=== PATIENT | female | born 1975 | race Caucasian/White ===

== ENCOUNTER 2019-11-03 14:03 | Outpatient (CLI) | payer BC, SELFPAY ==
--- NOTE | ~2019-11-03 | MM_ITS ---
EXAMINATION: MM screening yudith BI w manjit HISTORY: Screening TECHNIQUE: Craniocaudal and mediolateral oblique 3-D tomosynthesis images were obtained and synthetic 2-D images were generated. CAD analysis was submitted and interpreted. COMPARISON: Comparison to multiple prior studies sequentially, with oldest reviewed study dated 06/12. BREAST PARENCHYMAL COMPOSITION: The breasts are heterogeneously dense, which may obscure small masses . FINDINGS: There is no evidence of suspicious mass, calcification, or architectural distortion to sugg est malignancy in either breast. There has been no suspicious interval change. IMPRESSION: 1. No mammographic evidence of malignancy. 2. Recommend routine screening mammography in one year. BI-RADS Category 1: Negative Reviewed, dictated and finalized at location A.
== END 2019-11-03 14:04 | disposition home or self-care (01) ==
LOC: ANHIMG 14:10
PROVIDERS: PCP Family Medicine; Visit Provider Obstetrics & Gynecology
DX: Z12.31 Encounter for screening mammogram for malignant neoplasm of breast (principal)
CPT/HCPCS: 77063; 77067

== ENCOUNTER 2020-11-05 14:55 | Outpatient (CLI) | payer OTHER, SELFPAY ==
--- NOTE | ~2020-11-05 | MM_ITS ---
EXAMINATION: MM screening yudith BI w manjit HISTORY: Screening TECHNIQUE: Craniocaudal and mediolateral oblique 3-D tomosynthesis images were obtained and synthetic 2-D images were generated. CAD analysis was submitted and interpreted. COMPARISON: Comparison to multiple prior studies sequentially, with oldest reviewed study dated 06/12. BREAST PARENCHYMAL COMPOSITION: There are scattered areas of fibroglandular density. FINDINGS: There is no evidence of suspicious mass, calcification, or architectural distortion to sugg est malignancy in either breast. There has been no suspicious interval change. IMPRESSION: 1. No mammographic evidence of malignancy. 2. Recommend routine screening mammography in one year. BI-RADS Category 1: Negative Reviewed, dictated and finalized at location A.
== END 2020-11-05 14:56 | disposition home or self-care (01) ==
LOC: ANHIMG 14:57
PROVIDERS: PCP Family Medicine; Visit Provider Obstetrics & Gynecology
DX: Z12.31 Encounter for screening mammogram for malignant neoplasm of breast (principal)
CPT/HCPCS: 77063; 77067

== ENCOUNTER 2021-06-14 15:37 | Emergency (ER) | payer OTHER, SELFPAY ==
[2021-06-14 15:43] VITALS: BP 152/92; PULSE 86; RESP 18; TEMP 36.9; O2SAT 100
--- NOTE | 2021-06-14 15:46 | ED.GENADULT ---
HPI - General Adult General Chief complaint: Extremity Problem,Nontraumatic Stated complaint: SWOLLEN TOE Time Seen by Provider: 06/14/21 15:45 Source: patient, RN notes reviewed and old records reviewed Mode of arrival: ambulatory Limitations: no limitations History of Present Illness HPI narrative: 46-year-old female who presents to [facility] with complaints of infection to her right medial toe due to ingrown nail which patient admits to picking at. Right great toe is tender to palpation with inflamed red tissue medial toenail bed, no drainage noted with some white tissue also noted . Patient reports that she has been soaking her foot in Epsom SALT water and has been applying Neosporin ointment to site and covering it with band-aide. Patient reports that she has had previous ingrown nail to that toe in the past. She states no tingling or numbness to right great toe, full mobility of right foot with strong pulses present. Patient denies any fevers, chills or sweats, has not taken anything for her discomfort. Related Data Allergies Allergy/AdvReac Type Severity Reaction Status Date / Time No Known Allergies Allergy Unverified 08/08/17 12:31 Review of Systems Review of Systems: CONSTITUTIONAL: Denies fever, chills, or sweats. EYES: Denies visual changes, redness, or discharge. ENT: Denies rhinorrhea, congestion, sore throat, or otalgia. CARDIOVASCULAR: Denies chest pain, palpitations, or edema. RESPIRATORY: Denies cough or dyspnea. GASTROINTESTINAL: Denies abdominal pain, nausea, vomiting, or diarrhea. GENITOURINARY: Denies dysuria or hematuria. SKIN: Denies rash or itching.positive for red inflamed tissue medial aspect of right great toenail with swelling no drainage noted MUSCULOSKELETAL: Denies back pain, joint pain, or myalgia. NEUROLOGIC: Denies headache, numbness, or weakness. PSYCHIATRIC: Positive for anxiety or depression. All systems reviewed & are unremarkable except as noted in HPI and below PMFSH Past Medical History Medical History (Updated 06/14/21 @ 17:10 by Shivani Delaney NP) Anxiety and depression Rupture of uterus Surgical History Surgical History (Updated 06/14/21 @ 17:10 by Shivani Delaney NP) History of lumpectomy History of lumpectomy of both breasts History of tubal ligation Family History Family History (Updated 06/14/21 @ 17:27 by Shivani Delaney NP) Father Hypertension Cerebrovascular accident Diabetes mellitus Depression Mother Hypertension Breast cancer Sibling Bipolar 1 disorder Grandparent Heart disease Arthritis Social History Social History (Updated 06/14/21 @ 17:10 by Shivani Delaney NP) Smoking status: Never smoker Alcohol intake: never Substance use: never Living arrangements: with family Gender identity (if verbalized by the patient): Female Comments At time of signature, agree with nursing past medical, surgical, social and family history. There is no relevant family history pertinent to the presenting complaint Exam Narrative: GENERAL: Well-appearing, well-nourished, and in no acute distress. HEAD: Normocephalic, atraumatic. EYES: PERRLA and EOMI. ENT: Nares clear, no rhinorrhea or epistaxis. Mucous membranes moist.TM's normal with good light reflex. NECK: Supple.no lymphadenopathy CHEST: Clear to auscultation. No respiratory distress. HEART: Regular rate and rhythm. No murmur heard. Normal peripheral pulses. ABDOMEN: Soft, nontender, nondistended, normal active bowel sounds. EXTREMITIES: Normal range of motion. No edema. SKIN: Warm, dry, no rash. red inflamed tissue to right medial great toe with swelling and discomfort no drainage noted NEURO: No focal deficits. Alert and oriented x3. Course Course Level of Care: Express Care Visit Vital Signs Vital signs: Vital Signs Temperature 36.9 C 06/14/21 15:43 Pulse Rate 86 06/14/21 15:43 Respiratory Rate 18 06/14/21 15:43 Blood Pressure 152/92 H 06/14/21 15:43 Pulse
== END 2021-06-14 16:14 | disposition home or self-care (01) ==
PROVIDERS: Emergency Provider Registered Nurse; PCP Family Medicine
DX: L60.0 Ingrowing nail (principal)
CPT/HCPCS: 99213; G0463

== ENCOUNTER 2021-10-05 09:22 | Emergency (ER) | payer OTHER, SELFPAY ==
[2021-10-05] VITALS (19 sets, daily range): BP systolic 113–136; BP diastolic 67–96; PULSE 66–97; RESP 6–26; TEMP 36.6; O2SAT 98–100
--- NOTE | 2021-10-05 09:54 | ECG_ITS ---
Measurements Intervals [place] Rate: 65 P: 8 ND: 160 QRS: -12 QRSD: 93 T: 13 QT: 397 QTc: 414 Interpretive Statements SINUS RHYTHM LOW QRS VOLTAGE IN PRECORDIAL LEADS BASELINE ARTIFACT- I, III, AVR, AVL BORDERLINE ECG Electronically Signed On 10-05-2021 15:30:49 CDT by Ronan Owens D.O.
--- NOTE | 2021-10-05 10:02 | ED.DIZZY ---
HPI - Dizziness General Chief Complaint: Dizziness <PEYMAN Goins Last Filed: 10/05/21 19:16> Stated Complaint: reports EMS informed +orthostatics <PEYMAN Goins Last Filed: 10/05/21 19:16> Time Seen by Provider: 10/05/21 09:53 <PEYMAN Goins Last Filed: 10/05/21 19:16> Source: patient <PEYMAN Goins Last Filed: 10/05/21 19:16> Mode of arrival: ambulatory <PEYMAN Goins Last Filed: 10/05/21 19:16> Limitations: no limitations <PEYMAN Goins Last Filed: 10/05/21 19:16> History of Present Illness HPI Narrative: Patient is a 46-year-old female who presents the ED with report of lightheadedness and anxiety. Patient reports the past 2 mornings she has had a strange flushed sensation when she gets out of bed. She reports having a warm/tingly/numb/flushed sensation that goes through her head and down into her arms. She feels lightheaded with this. She has a long history of anxiety and panic attacks and does not currently take any medication for anxiety. Patient called EMS yesterday, at which point she had an EKG performed at her house, which was normal. They thought she was most likely experiencing anxiety. Patient did not undergo further evaluation yesterday. She again had a similar feeling when she got out of bed this morning. She called EMS again. Patient reports EMS checked orthostatic vital signs today and noted her blood pressure to drop from 140-110. They then recommended she come to the ED. She was brought by her . Patient does feel very anxious currently. She denies any other symptoms, chest pain, difficulty breathing, headache, visual changes, focal weakness, abdominal pain, nausea, vomiting, syncope. <PEYMAN Goins Last Filed: 10/05/21 19:16> Related Data Allergies/Adverse Reactions: Allergies Allergy/AdvReac Type Severity Reaction Status Date / Time No Known Allergies Allergy Unverified 09/24/21 10:36 <Cary Arzola PA-C - Last Filed: 10/05/21 19:16> Review of Systems Review of Systems: CONSTITUTIONAL: Denies fever, chills, or sweats. EYES: Denies visual changes. CARDIOVASCULAR: Denies chest pain, palpitations, or edema. RESPIRATORY: Denies cough or dyspnea. GASTROINTESTINAL: Denies abdominal pain, nausea, vomiting, or diarrhea. GENITOURINARY: Denies dysuria or hematuria. SKIN: Denies rash or itching. MUSCULOSKELETAL: Denies back pain. NEUROLOGIC: Reports lightheadedness, flushed/numb/tingly sensation in head/arms. Denies headache, syncope, or weakness. PSYCHIATRIC: Reports anxiety. <Cary Arzola PA-C - Last Filed: 10/05/21 19:16> All systems reviewed & are unremarkable except as noted in HPI and below <Cary Arzola PA-C - Last Filed: 10/05/21 19:16> PMFSH Past Medical History Medical History: Medical History Anxiety and depression Rupture of uterus <Cary Arzola PA-C - Last Filed: 10/05/21 19:16> Surgical History Surgical History: Surgical History History of lumpectomy History of lumpectomy of both breasts History of tubal ligation <Cary Arzola PA-C - Last Filed: 10/05/21 19:16> Family History Family History: Family History Father Hypertension Cerebrovascular accident Diabetes mellitus Depression Mother Hypertension Breast cancer Sibling Bipolar 1 disorder Grandparent Heart disease Arthritis <Cary Arzola PA-C - Last Filed: 10/05/21 19:16> Social History Social History: Social History Smoking status: Never smoker Alcohol intake: current Alcohol use details: soically Substance use: never Substance use type: does not use Additional occupation/education comments: stay at home mom Gender identity (if verbalize
[2021-10-05 10:05] LABS: Basophils Percent Auto 0.7 % (0.2-1.2); Eosinophils Absolute Auto 0.1 K/mm3 (0-0.3); Eosinophils Percent Auto 1.7 % (0-4.4); Hematocrit 40.4 % (37.0-47.0); Hemoglobin 14.1 g/dL (12.0-15.0); Immature Granulocyte Absolute 0.01 K/mm3 (0.00-0.031); Immature Granulocyte Percent A 0.2 % (0-0.5); Lymphocytes Percent Auto 22.6 % (18.3-44.2); Mean Corpuscular HGB Conc 34.9 g/dl (32-36); Mean Corpuscular Hemoglobin 29.9 pg (26-34); Mean Corpuscular Volume 85.6 fl (80-100); Mean Platelet Volume 10.2 fl (7.4-10.4); Monocytes Absolute Auto 0.4 K/mm3 (0.1-0.6); Monocytes Percent Auto 7.5 % (2.6-8.5); Neutrophils Absolute Auto 3.9 K/mm3 (1.3-6.7); Neutrophils Percent Auto 67.3 % (45.5-73.1); Platelet Count Result 273 k/mm3 (150-375); Red Blood Count 4.72 M/mm3 (4.2-5.4); Red Cell Distribution Width 13.1 % (11.5-14.5); White Blood Count 5.8 K/mm3 (4.5-10.0)
[2021-10-05 10:08] LABS: Appearance Urine Cloudy (Clear); Bilirubin Urine 1+ (Negative); Blood Urine 3+ (Negative); Color Urine Amber (Yellow); Glucose Urine UA Negative (Negative); Ketones Urine Negative (Negative); Leukocyte Esterase Ur Negative LEU/UL (Negative); Nitrate Urine Negative (Negative); Protein Urine 1+ mg/dL (Negative); Specific Grav Ur 1.025 (1.001-1.035); Urobilinogen Urine 0.2 mg/dL (<2.0); pH Urine 5.5 (5.0-9.0)
[2021-10-05 10:09] LABS: Add Urine Microscopic? YES
[2021-10-05 10:16] LABS: Alanine Aminotransferase 18 U/L (6-35); Albumin Level 4.3 g/dL (3.5-5.1); Alkaline Phosphatase 54 U/L (38-126); Anion Gap 4 mmol/L (8-16); Aspartate Amino Transferase 20 U/L (14-36); Bilirubin,Total 0.5 mg/dL (0.2-1.3); Blood Urea Nitrogen 13 mg/dL (7-17); Calcium 8.5 mg/dL (8.4-10.2); Carbon Dioxide 26 mmol/L (22-30); Chloride 106 mmol/L (98-107); Estimated CRCL calculation 83 ml/min; Estimated Glomerular Filt Rate > 60; Glucose 115 mg/dL (65-110); Potassium 3.9 mmol/L (3.4-5.0); Sodium 136 mmol/L (137-145)
[2021-10-05 10:27] LABS: Troponin I < 0.012 ng/mL (0.000-0.034)
[2021-10-05] MEDS: SODIUM CHLORIDE 0.9% IV 1,000 ML 999 ML IV CONT (10:30)
[2021-10-05 10:44] LABS: Bacteria Urine Trace /hpf; Mucus Urine Rare /lpf; RBC Urine >75 /hpf (0-2); Squamous Epithelial Cell Urine Rare /hpf (Few)
--- NOTE | 2021-10-05 11:18 | PC.NURSE ---
Report to KELLY Zhang, to continue care. Pt's IVF continue to infuse.
== END 2021-10-05 12:38 | disposition home or self-care (01) ==
PROVIDERS: Physician Assistant; Emergency Provider Emergency Medicine; PCP Family Medicine
DX: R42 Dizziness and giddiness (principal); F41.9 Anxiety disorder, unspecified; R94.31 Abnormal electrocardiogram [ECG] [EKG]
CPT/HCPCS: 36415; 80053; 81001; 84484; 85025; 87077; 87086; 87088; 87186; 93005; 96360; 99284; J7030

== ENCOUNTER 2021-12-31 13:18 | Outpatient (CLI) | payer OTHER, SELFPAY ==
--- NOTE | ~2021-12-31 | MM_ITS ---
EXAMINATION: MM screening yudith BI w manjit HISTORY: Screening mammogram, family history of breast cancer in her mother. TECHNIQUE: Craniocaudal and mediolateral oblique 3-D tomosynthesis images were obtained and synthetic 2-D images were generated. CAD analysis was submitted and interpreted. COMPARISON: 11/05/2020, 11/03/2019, 12/22/2017 BREAST PARENCHYMAL COMPOSITION: There are scattered areas of fibroglandular density. FINDINGS: No suspicious mass, calcification, or architectural distortion are identified in either lindsay ast to suggest malignancy. There has been no suspicious interval change. IMPRESSION: 1. No mammographic evidence of malignancy. 2. Recommend routine screening mammography in one year. BI-RADS Category 1: Negative Reviewed, dictated and finalized at location A.
== END 2021-12-31 13:19 | disposition home or self-care (01) ==
PROVIDERS: PCP Family Medicine; Visit Provider Obstetrics & Gynecology
DX: Z12.31 Encounter for screening mammogram for malignant neoplasm of breast (principal)
CPT/HCPCS: 77063; 77067

== ENCOUNTER 2023-02-25 14:38 | Outpatient (CLI) | payer OTHER, SELFPAY ==
--- NOTE | ~2023-02-25 | MM_ITS ---
EXAMINATION: MM screening yudith BI w manjit HISTORY: Screening mammogram TECHNIQUE: Craniocaudal and mediolateral oblique 3-D tomosynthesis images were obtained and synthetic 2-D images were generated. CAD analysis was submitted and interpreted. COMPARISON: 12/2021, 11/15/2020, 11/03/2019 bilateral screening mammogram examinations BREAST PARENCHYMAL COMPOSITION: There are scattered areas of fibroglandular density. FINDINGS: There is a biopsy marker on the left. History of prior bilateral benign breast biopsies. Th ere is no evidence of suspicious mass, calcification, or architectural distortion to suggest malignan cy in either breast. There has been no suspicious interval change. IMPRESSION: 1. No mammographic evidence of malignancy. 2. Recommend routine screening mammography in one year. BI-RADS Category 1: Negative Reviewed, dictated and finalized at location A. TOP SETTER
== END 2023-02-25 14:39 | disposition home or self-care (01) ==
LOC: ANHIMG 14:40
PROVIDERS: Visit Provider Obstetrics & Gynecology
DX: Z12.31 Encounter for screening mammogram for malignant neoplasm of breast (principal)
CPT/HCPCS: 77063; 77067

== ENCOUNTER 2023-04-30 22:54 | Emergency (ER) | payer OTHER, SELFPAY ==
[2023-04-30 22:58] VITALS: BP 151/100; PULSE 126; RESP 16; TEMP 38.2; O2SAT 100
[2023-04-30 23:47] LABS: Influenza A QL RT-PCR Negative (Negative); Influenza B QL RT-PCR Negative (Negative); RSV RNA, RT-PCR Negative (Negative); SARS-CoV-2 RNA PCR Negative (Negative)
--- NOTE | 2023-05-01 01:13 | PC.NURSE ---
Pt ambulated to the desk and stated she was feeling better and was going to leave. This RN encouraged pt to stay and to come back if anything changes. Pt ambulated out of ED.
== END 2023-05-01 01:40 | disposition left against medical advice (07) ==
LOC: ANHED 05-01 01:24
PROVIDERS: Emergency Provider Emergency Medicine
DX: R51.9 Headache, unspecified (principal); Z20.822 Contact with and (suspected) exposure to COVID-19
CPT/HCPCS: 87637; 99199

== ENCOUNTER 2023-06-01 09:28 | Emergency (ER) | payer OTHER, SELFPAY ==
[2023-06-01] VITALS (10 sets, daily range): BP systolic 113–128; BP diastolic 69–89; PULSE 73–95; RESP 12–18; TEMP 36.2; O2SAT 99–100
--- NOTE | 2023-06-01 09:44 | ECG_ITS ---
Measurements Intervals [place] Rate: 87 P: 24 NV: 167 QRS: -13 QRSD: 94 T: 42 QT: 333 QTc: 401 Interpretive Statements SINUS RHYTHM LOW QRS VOLTAGE IN PRECORDIAL LEADS BORDERLINE R WAVE PROGRESSION, ANTERIOR LEADS BORDERLINE ECG COMPARED TO ECG 10/05/2021 11:08:40 NO SIGNIFICANT CHANGES Electronically Signed On 06-01-2023 10:16:37 ELECTION ASSISTANT by Ronan Owens D.O.
[2023-06-01 10:35] LABS: Basophils Percent Auto 0.5 % (0.2-1.2); Eosinophils Absolute Auto 0.1 K/mm3 (0-0.3); Eosinophils Percent Auto 2.2 % (0-4.4); Hematocrit 42.3 % (37.0-47.0); Hemoglobin 13.7 g/dL (12.0-15.0); Immature Granulocyte Absolute 0.01 K/mm3 (0.00-0.031); Immature Granulocyte Percent A 0.2 % (0-0.5); Lymphocytes Absolute Auto 1.31 K/mm3 (0.9-3.2); Lymphocytes Percent Auto 23.6 % (18.3-44.2); Mean Corpuscular HGB Conc 32.4 g/dl (32-36); Mean Corpuscular Hemoglobin 29.4 pg (26-34); Mean Corpuscular Volume 90.8 fl (80-100); Mean Platelet Volume 10.8 fl (7.4-10.4); Monocytes Absolute Auto 0.3 K/mm3 (0.1-0.6); Monocytes Percent Auto 6.1 % (2.6-8.5); Neutrophils Absolute Auto 3.8 K/mm3 (1.3-6.7); Neutrophils Percent Auto 67.4 % (45.5-73.1); Platelet Count Result 234 k/mm3 (150-375); Red Blood Count 4.66 M/mm3 (4.2-5.4); Red Cell Distribution Width 13.6 % (11.5-14.5); White Blood Count 5.6 K/mm3 (4.5-10.0)
[2023-06-01 10:48] LABS: Alanine Aminotransferase 19 U/L (6-35); Alkaline Phosphatase 48 U/L (38-126); Anion Gap 7 mmol/L (8-16); Aspartate Amino Transferase 19 U/L (14-36); Bilirubin,Total 0.9 mg/dL (0.2-1.3); Blood Urea Nitrogen 7 mg/dL (7-17); Calcium 8.8 mg/dL (8.4-10.2); Carbon Dioxide 22 mmol/L (22-30); Chloride 108 mmol/L (98-107); Estimated CRCL calculation 96 ml/min; Estimated Glomerular Filt Rate > 60; Glucose 116 mg/dL (65-110); Potassium 3.5 mmol/L (3.4-5.0); Sodium 137 mmol/L (137-145)
[2023-06-01 10:59] LABS: Troponin I < 0.012 ng/mL (0.000-0.034)
--- NOTE | 2023-06-01 11:55 | ED.GENADULT ---
HPI - General Adult General Chief complaint: Anxiety Stated complaint: anxiety Time Seen by Provider: 06/01/23 11:01 History of Present Illness HPI narrative: Patient is a 48-year-old female who presents the ER with reports of dizziness and anxiety. Reports she woke up this morning feeling dizzy/ lightheaded. It since passed. She reports that may be related to her anxiety. She has been off of her Paxil because she is supposed transition to effexor. Since quitting her medication she has become increasingly anxious. She is nervous to start her new medication because of potential side effects. She reports increased stress due to her 's previous drug use and her daughter having a syncopal episode in front of her the other day. Related Data Home Medications Medication Instructions Recorded Confirmed paroxetine HCl 20 mg tablet 20 mg PO DAILY 10/30/22 Allergies Allergy/AdvReac Type Severity Reaction Status Date / Time No Known Allergies Allergy Verified 06/01/23 11:09 Review of Systems Constitutional: Constitutional: Reports no additional constitutional complaints ENT: Reports system reviewed and no additional complaints, except as documented Cardiovascular: Cardiovascular: Reports no additional cardiovascular complaints Respiratory: Respiratory: Reports no additional respiratory complaints Gastrointestinal: Gastrointestinal: Reports no additional gastrointestinal complaints Musculoskeletal: Musculoskeletal: Reports no additional musculoskeletal complaints Neurologic: Denies confusion, Reports dizziness, Denies syncope and Denies headache(s) Psychiatric: Psychiatric: Reports anxiety and Denies depression [facility] Past Medical History Medical History Anxiety and depression Rupture of uterus Surgical History Surgical History History of lumpectomy History of lumpectomy of both breasts History of tubal ligation Family History Family History Father Hypertension Cerebrovascular accident Diabetes mellitus Depression Mother Hypertension Breast cancer Sibling Bipolar 1 disorder Grandparent Heart disease Arthritis Social History Social History (Updated 10/30/22 @ 14:11 by Lashay Medina MA) Smoking status: Never smoker Alcohol intake: current Alcohol use details: soically Substance use: never Substance use type: does not use Lack of Transportation: No Lack of Food: Never True Current Housing: I Have Housing Concerned About Future Housing: No Difficulty Paying Gas/Electric Bills: No Difficulty Paying for Meds: No Currently Unemployed: No Education: High School Diploma/GED Difficulty w/ Childcare or Family Care: No Living arrangements: with family Occupation/Education: occupation Additional occupation/education comments: stay at home mom Gender identity (if verbalized by the patient): Female Sexual Orientation (if Verbalized by the Patient): Straight or Heterosexual Exam Narrative: GENERAL: Well-appearing, well-nourished, and in no acute distress. HEAD: Normocephalic, atraumatic. ENT: Mucous membranes moist. NECK: Supple. CHEST: Clear to auscultation. No respiratory distress. HEART: Regular rate and rhythm. Normal peripheral pulses. ABDOMEN: Soft, nontender, nondistended. EXTREMITIES: Normal range of motion. No edema. SKIN: Warm, dry, no rash. NEURO: Alert and oriented x3. PSYCH: Normal mood and affect. Course Course Emergency Course: Patient seems to have significant anxiety that is the crux of her issues , patient has been intermittently tearful during our conversation. I have encouraged her to start her Effexor as previously prescribed. We have reviewed her lab results and EKG and I have given her reassurance. Vital Signs Vital signs: Vital Signs Temperature 97.2
== END 2023-06-01 12:02 | disposition home or self-care (01) ==
PROVIDERS: Emergency Provider Emergency Medicine
DX: F41.9 Anxiety disorder, unspecified (principal); F32.A Depression, unspecified; R94.31 Abnormal electrocardiogram [ECG] [EKG]
CPT/HCPCS: 36415; 80053; 84484; 85025; 93005; 95864; 99284

== ENCOUNTER 2024-06-29 02:55 | Emergency (ER) | payer OTHER, SELFPAY ==
--- OUTSIDE RECORDS SUMMARY | 2024-06-29 02:57 | XMS_ITS | CONTINUITY OF CARE DOCUMENT ---
Author Name ricardo silva Address Unknown Organization [facility] Address [address] [place] [address] Phone [phone] Care Team Providers Care Cranberry Bog Supervisor Name Role Phone Win SHIN, Richard Unavailable BELEN SHIN, ANGELA Unavailable BELEN SHIN, RUNDA Unavailable VITAL SIGNS Date Observation Value Provider blood pressure, diastolic 82 mm[Hg] Be jade Mejias blood pressure, systolic 128 mm[Hg] Jennifer Mejias RESULTS Date Observation Value Provider Reference Range Interpretation Location thyroid stimulating hormone, serum 1.910 u[IU]/mL catalina Snowden thyroxine, serum, free 1.11 ng/dL catalina globulins, serum, total 3.2 g/dL catalina Snowden Estimated Glomerular Filtration Rate (calc) >59 catalina Snowden albumin/globulin ratio, serum 1.3 catalina Snowden protein, total, serum 7.4 g/dL catalina Snowden albumin, serum 4.2 g/dL catalina Snowden bilirubin, serum, total 0.3 mg/dL catalina Snowden alkaline phosphatase, serum 65 1/L [facility] alanine aminotransferase (SGPT), serum 13 1/L [facility] aspartate aminotransferase (SGOT), serum 16 1/L [facility] calcium, serum 8.8 mg/dL catalina Snowden blood glucose, fasting 78 mg/dL Jose Snowden creatinine, serum 0.76 mg/dL Jose Snowden urea nitrogen, [facility] dioxide, serum, total 21 mmol/L [facility] chloride, serum 102 mmol/L [facility] potassium, serum 4.0 mmol/L [facility] sodium, serum 137 mmol/L [facility] platelet count 231 10*3/uL [facility] red blood cell distribution width 13.8 % Jose Snowden mean corpuscular hemoglobin concentration, RBC 34.2 g/dL Jose Snowden mean corpuscular hemoglobin, RBC 30.3 pg [facility] mean corpuscular volume, RBC 88 fL [facility] hematocrit, blood 35.8 % [facility] hemoglobin, blood 12.2 g/dL [facility] erythrocyte (RBC) count 4.04 10*6/mm3 [facility] monocyte count, blood 0.5 10*3/mm3 [facility] lymphocyte count, blood 1.5 10*3/mm3 [facility] monocytes as percent of blood leukocytes 6 % Jose Snowden lymphocytes as percent of blood leukocytes 19 % Jose Snowden leukocyte count, blood 7.7 10*3/mm3 Jose Snowden SOCIAL HISTORY Date Observation Value Provider smoking status never Carole Fleming FUNCTIONAL STATUS Date Observation Value Provider periodic limb movement index absent (0) Belkis Mejias INSURANCE PROVIDERS Payer name Policy type / Coverage type [place] red green party ID [place] MEDICAID (2) Medicaid [id number] HEALTHCARE AND FAMILY SERVICES Medicaid 1 [id number]
--- OUTSIDE RECORDS SUMMARY | 2024-06-29 02:57 | XMS_ITS | Encounter Summary ---
Author Organization [facility] Address [address] [place] [address] Care Team Providers Care Gas Analyst Name Role Phone Justen Barr MD Primary Care Provider Tono MILAN MD, Francis G Primary Care Provider [phone] Encounter Details Date Type Department Care Team (Late st Contact Info) Description 11/05/2021 Telephone [facility] [address] [place] [address], [place] [id number] Jose De Jesus Power III, MD [address] [place] [phone] Social History Tobacco Use Types Packs/Day Years Used Date Smoking Tobacco: Never Smokeless Tobacco: Never Alcohol Use Standard Drinks/Week Comments Yes 0 (1 standard drink = 0.6 oz pur e alcohol) Occ PHQ-2 Answer Date Recorded PHQ2 TOTAL SCORE 0 10/28/2021 Sex and Gender Information Value Date Recorded Sex Assigned at Not on file Gender Identity Not on file Sexual Orientation Not on file documented as of this encounter Miscellaneous Notes * Telephone Encounter - Shivani Stern - 11/05/2021 3:24 PM CDT Current Provider name: Dr. Jose De Jesus Power Reason for call: Mrs. Camille Beavers returned a call from Claudette she believes in Dr. Power's office this afternoon. Please call back. Patient Call Back number: [phone] documented in this encounter Plan of Treatment Upcoming Encounters Date Type Department Care Team (Late st Contact Info) Description 08/08/2024 8:30 AM CDT Office Visit [facility] - Internal Med [address] [place] [address], [place] [phone] Jose De Jesus Power III, MD [facility] [facility] [address] [place] [phone] 04/21/2025 11:00 AM ATTENDING AMBULATORY CARE Office Visit [facility] - Dermatology [address] [place] [address], [place] [phone] Valentine Tabor MD [address] [place] [address] [address] [place] [phone] documented as of this encounter Visit Diagnoses Not on filedocumented in this encounter Care Teams Gas Analyst Relationship Specialty Start Date End Date Justen Barr MD [address] [place] [address] [address] [place] [phone] PCP - General 11/04/21 10/07/22 Jose De Jesus Power III, MD [address] [place] [address] [address] [place] [phone] PCP - General Internal Medicine 10/08/22 documented as of this encounter
--- OUTSIDE RECORDS SUMMARY | 2024-06-29 02:57 | XMS_ITS | Clinical Summary ---
Author Organization [facility] Address [address] [place] [address] Care Team Providers Care Flat Examiner Name Role Phone Tono MILAN MD, Jose De Jesus Osborn Primary Care Provider [phone] Source Comments [facility],non-owned Affiliates and Associated Physician Practices is amultiple site organization consisting of ambulatory clinics and hospital sitesin [place], [place], [place] and [place]. This disclosure is being madepursuant to the Care Everywhere program and may not contain all information available regarding this patient. Last updated 17.[facility] Allergies Active Allergy Reactions Criticality Noted Date Comments Venlafaxine Rash Medium 01/25/2024 Venlafaxine Hcl Er Itching,Palpitations ,Rash,Shortnes s of Breath,Skin Reactions,Vision Changes High 01/25/2024 Medications * Be aware that medications may not be up to date on this document. Alwaysverify current medications with the patient. Medication Sig Dispensed Refills Start Date End Date Status PARoxetine (Paxil) 10 MG tablet Take 1 (one) tablet by mouth once daily 30 tablet 3 03/28/2024 Active clindamycin (Cleocin) 1 % lotion Apply to affected area on back and groin daily. 30 day supply. 60 mL 2 04/15/2024 Active hydrocortisone (Hytone) 2.5 % cream Apply to itchy bumps on back and groin twice daily as needed. 30 days supply. 30 g 3 04/15/2024 Active ALPRAZolam (Xanax) 0.5 MG tabletIndications:G AD (generalized anxiety disorder) Take 1 (one) tablet by mouth once daily as needed for Anxiety 30 tablet 2 05/12/2024 08/10/2024 Active Active Problems Problem Noted Date Diagnosed Date INES (obstructive sleep apnea) 11/03/2022 HERIBERTO (generalized anxiety disorder) 10/28/2021 Class 2 obesity with body ma ss index (BMI) of 36.0 to 36.9 in adult 10/28/2021 Encounters Date Type Department Care Team Description 04/15/2024 1:00 PM LOOM MECHANIC Office Visit [facility] - Dermatology [facility] [place] [address] Person, Lucia Allen APRN-Valentine Ron MD Bacterial folliculitis (Primary Dx); Rash and other nonspecific skin eruption; Melanocytic nevi of trunk; Solar lentiginosis; Dermatofibroma; Other seborrheic keratosis 04/15/2024 Travel from Last 3 Months Immunizations Name Administration Dates Next Due TDAP (7yrs+) 01/25/2024 TDAP, HISTORIC VACCINE 11/09/2013 Family History Medical History Relation Name Comments Diabetes - Type 2 Maternal Grandmother Relation Name Status Comments Maternal Grandmother Social History Tobacco Use Types Packs/Day Years Used Date Smoking Tobacco: Never Smokeless Tobacco: Never Tobacco Cessation:Counseling Given: Not Answered Alcohol Use Standard Drinks/Week Comments Yes 0 (1 standard drink = 0.6 oz pur e alcohol) Occ PHQ-2 Answer Date Recorded Patient Health Questionnaire-2 Score 3 03/21/2024 Sex and Gender Information Value Date Recorded Sex Assigned at Not on file Gender Identity Not on file Sexual Orientation Not on file Last Filed Vital Signs Vital Sign Reading Time Taken Comments Blood Pressure 136/75 03/21/2024 2:16 PM LOOM MECHANIC Pulse 75 03/21/2024 2:16 PM LOOM MECHANIC Temperature 36.4 C (97.6 F) 06/29/2023 10:51 AM CDT Respiratory Rate 16 01/25/2024 11:08 AM CDT Oxygen Saturation 99% 03/21/2024 2:16 PM LOOM MECHANIC Inhaled Oxygen Concentration - - Weight 98.4 kg (217 lb) 03/21/2024 2:16 PM LOOM MECHANIC Height 162.6 cm (5' 4 ) 03/21/2024 2:16 PM LOOM MECHANIC Body Mass Index 37.25 03/21/2024 2:16 PM LOOM MECHANIC Plan of Treatment Upcoming Encounters Date Type Department Care Team (Late st Contact Info) Description 08/08/2024 8:30 AM CDT Office Visit [facility] - Internal Med [address] [place] [address], [place] [phone] Jose De Jesus Power III, MD [address] [place] [address] [address] [place] [phone] 04/21/2025 11:00 AM LOOM MECHANIC Office Visit [facility] - Dermatology [address] [place] [address], [place] [phone] Valentine Tabor MD [address] [place] [address] [address] [place] [phone] Health Maintenance Due Date Last Done Comments COLOGUARD (AGES 45-75) - COLON CA SCREENING 1975 CT COLONOGRAPHY - COLON CA SCREENING 1975 FIT - COLON CA SCREENING 1975 FLEX SIG - COLON CA SCREENING 1975 COVID-19 VACCINE ( - 2023- season) 2023 PNEUMOCOCCAL VACCINE 50+ (1 of 1 - PCV) 02/23/2024 ZOSTER VACCINE (1 of 2) 02/23/2024 DEPRESSION SCREENING 03/30/2024 04/23/2023, 11/03/2022, 10/28/2021 INFLUENZA VACCINE (Season Ended) 2024 MAMMOGRAM 01/07/2025 01/07/2023 (Done Outside Per Report) PAP SMEAR 10/30/2025 10/30/2022 (Done Outside Per Patient) SCREENING FOR DIABETES 02/25/2027 , 02/26/2024, 11/03/2022, Additional history exists LIPID TESTING 02/25/2029 02/26/2024, 080 09/2022, 11/01/2021 COLON MONITORING 07/03/2032 07/03/2022, 07/03/2022 COLONOSCOPY - COLON CA SCREENING 07/03/2032 07/03/2022, 07/03/2022 Colorectal Cancer Screening 07/03/2032 DTAP/TDAP/TD VACCINES (3 - Td or Tdap) 01/24/2034 01/25/2024, 11/09/2013 HEPATITIS C SCREENING Completed 11/01/2021 HIV SCREENING Completed 11/01/2021 HEPATITIS B VACCINE Discontinued HIB VACCINE Aged Out No longer eligi ble based on patient's age to complete this topic HPV VACCINE Aged Out No longer eligi ble based on patient's age to complete this topic MENINGOCOCCAL (Group B) VACCINE SHARED DECISION-MAKING Aged Out No longer eligible based on patient's age to complete this topic MENINGOCOCCAL GROUPS A/C/Y/W VACCINE Aged Out No longer eligible based on patient's age to complete this topic Procedures Procedure Name Priority Date/Time Associated Diagnosis Comments COMPREHENSIVE METABOLIC PANEL 02/26/2024 1:59 PM LOOM MECHANIC LIPID PROFILE 02/26/2024 1:59 PM LOOM MECHANIC ENDOSCOPY, COLON, SCREENING Routine 07/03/2022 11:04 AM CDT HEPATITIS C AB W/RFLX TO HCV RNA QN PCR Routine 11/01/2021 12:33 PM CDT Routine health maintenance HIV-1 HIV-2 ANTIBODY + HIV P24 AG PANEL Routine 11/01/2021 12:33 PM CDT Routine health maintenance from Last 3 Months or Most Recently Relevant to Health Maintenance Results * COMPREHENSIVE METABOLIC PANEL (02/26/2024 1:59 PM LOOM MECHANIC) Pathologist [facility] Glucose 85 65 - 99 mg/dL [facility] Comment: Fasting reference interval BUN 10 7 - 25 mg/dL [facility] Creatinine 0.86 0.50 - 1.03 mg/dL [facility] eGFR by Cystatin C 82 > OR = 60 mL/min/1. 73m2 [facility] BUN/Creatinine Ratio SEE NOTE: 6 - 22 (calc) [facility] Comment: Not Reported: BUN and Creatinine are within reference range. Sodium 135 135 - 146 mmol/L [facility] Potassium 3.9 3.5 - 5.3 mmol/L [facility] Chloride 100 98 - 110 mmol/L [facility] CO2 26 20 - 32 mmol/L [facility] Calcium 8.9 8.6 - 10.4 mg/dL [facility] Protein Total 7.2 6.1 - 8.1 g/dL [facility] Albumin 4.1 3.6 - 5.1 g/dL [facility] Globulin Total 3.1 1.9 - 3.7 g/dL (calc) [facility] Albumin/Globulin Ratio 1.3 1.0 - 2.5 (calc) [facility] Bilirubin Total 0.7 0.2 - 1.2 mg/dL [facility] Alkaline Phosphatase 53 37 - 153 U/L [facility] AST 15 10 - 35 U/L [facility] ALT 15 6 - 29 U/L [facility] Comment: Test Performed at: [facility] [address] CESAR NICOLE MD 02/26/2024 1:59 PM LOOM MECHANIC 02/26/2024 2:01 PM LOOM MECHANIC Jose De Jesus Power III, MD LAB - CHEMISTRY O RDERABLES Performing Organization Address City/State/[place] Co de Phone Number [address] [address] * (ABNORMAL) LIPID PROFILE (02/26/2024 1:59 PM LOOM MECHANIC) Cholesterol 117 <200 mg/dL [facility] HDL Cholesterol 49(L) > OR = 50 mg/dL [facility] Triglycerides 75 <150 mg/dL [facility] LDL Calculated 52 mg/dL (calc) [facility] Comment: Reference range: <100 Desirable range <100 mg/dL for primary prevention; <70 mg/dL for patients with CHD or diabetic patients with > or = 2 CHD risk factors. LDL-C is now calculated using the Jason-Bear calculation, which is a validated novel method providing better accuracy than the Friedewald equation in the estimation of LDL-C. Jason GONZALEZ et al. ZACK. 2013;310(19): 4711-0040 (http://education.Chattering Pixels.RadarChile/faq/VHQ894) CHOL/HDLC RATIO 2.4 <5.0 (calc) [facility] Non HDL Cholesterol 68 <130 mg/dL (calc) [facility] Comment: For patients with diabetes plus 1 major ASCVD risk factor, treating to a non-HDL-C goal of <100 mg/dL (LDL-C of <70 mg/dL) is considered a therapeutic option. Test Performed at: [facility] [address] [place] [address] CESAR NICOLE MD 02/26/2024 1:59 PM LOOM MECHANIC 02/26/2024 2:01 PM LOOM MECHANIC Jose De Jesus Power III, MD LAB - CHEMISTRY O RDERABLES [address] [address] * ENDOSCOPY, COLON, SCREENING (07/03/2022 11:04 AM CDT) Report Endoscopy POC Endoscopy Department Report _ Patient Name: Camille Beavers Procedure Date: 07/03/2022 11:04 AM Date of : 1975 Classification: Outpatient Gender: Female Ethnicity: Not or Race: White _ Providers: Caity Seymour MD, Mirlande Samson (Fellow) Referring MD: Procedure: Colonoscopy Indications: Screening for colorectal malignant neoplasm Medications: Monitored Anesthesia Care Patient Profile: This is a 47 year old female. Description of Procedure: Pre-Anesthesia Assessment: - Prior to the procedure, a History and Physical was performed, and patient medications and allergies were reviewed. The patient's tolerance of previous anesthesia was also reviewed. The risks and benefits of the procedure and the sedation options and risks were discussed with the patient. All questions were answered, and informed consent was obtained. Prior Anticoagulants: The patient has taken no previous anticoagulant or antiplatelet agents. ASA Grade Assessment: II - A patient with mild systemic disease. After reviewing the risks and benefits, the patient was deemed in satisfactory condition to undergo the procedure. After I obtained informed consent, the scope was passed under direct vision. Throughout the procedure, the patient's blood pressure, pulse, and oxygen saturations were monitored continuously. The Colonoscope was introduced through the anus and advanced to the terminal ileum. The colonoscopy was performed without difficulty. The patient tolerated the procedure well. The quality of the bowel preparation was evaluated using the BBPS (Livingston Bowel Preparation Scale) with scores of: Right Colon = 3, Transverse Colon = 3 and Left Colon = 3 (entire mucosa seen well with no residual staining, small fragments of stool or opaque liquid). The total BBPS score equals 9. The terminal ileum, ileocecal valve, appendiceal orifice, and rectum were photographed. Findings: Skin tags were found on perianal exam. The colon (entire examined portion) appeared normal. The terminal ileum appeared normal. Non-bleeding external and internal hemorrhoids were found during retroflexion. The hemorrhoids were medium-sized. Estimated Blood Loss: Estimated blood loss: none. Complications: No immediate complications. Impression: - Perianal skin tags found on perianal exam. - The entire examined colon is normal. - The examined portion of the ileum was normal. - Non-bleeding external and internal hemorrhoids. - No specimens collected. Recommendation: - Patient has a contact number available for emergencies. The signs and symptoms of potential delayed complications were discussed with the patient. Return to normal activities tomorrow. Written discharge instructions were provided to the patient. - Resume previous diet. - Continue present medications. - Repeat colonoscopy in 10 years for screening purposes. - Return to primary care physician as previously scheduled. Attending Participation: I was present and participated during the entire procedure, including non-lagunas portions. Procedure Code(s): --- Professional --- G0121, Colorectal cancer screening; colonoscopy on individual not meeting criteria for high risk Diagnosis Code(s): --- Professional --- Z12.11, Encounter for screening for malignant neoplasm of colon K64.8, Other hemorrhoids K64.4, Residual hemorrhoidal skin tags CPT copyright 2019 [employer]. All rights reserved. The codes documented in this report are preliminary and upon visual and stock associate review may be revised to meet current compliance requirements. Caity Seymour MD 07/03/2022 11:50:01 AM Note Initiated On: 07/03/2022 11:04 AM Number of Addenda: 0 [facility] [address] [place] [address] [facility] 07/03/2022 11:0 4 AM CDT Caity Seymour MD GI PROCEDURE ORDER WILMER Performing Organization Address [facility]/[place] Co de Phone Number [facility] * HEPATITIS C AB W/RFLX TO HCV RNA QN PCR (11/01/2021 12:33 PM CDT) Hepatitis C Antibody NON-REACTI VE NON-REACT EDU [facility] Signal to Cut-Off 0.03 <1.00 [facility] Comment: HCV antibody was non-reactive. There is no laboratory evidence of HCV infection. In most cases, no further action is required. However, if recent HCV exposure is suspected, a test for HCV RNA (test code 26718) is suggested. For additional information please refer to http://education.Invup/faq/VRI84i1 (This link is being provided for informational/ educational purposes only.) Test Performed at: [facility] [address] [place] [address] JEREMY LAST DO,MPH Blood BLOOD SPECIMEN / Unknown 11/01/2021 12:33 PM CDT 11/01/2021 12:36 PM CDT Jose De Jesus Power III, MD LAB - CHEMISTRY O RDERABLES Performing Organization Address City/[facility]/ZIP Co de Phone Number [facility] [address] [place] [address] * HIV-1 HIV-2 ANTIBODY + HIV P24 AG PANEL (11/01/2021 12:33 PM CDT) HIV Screen 4th Generation w Reflex NON-REACT EDU NON-REACT EDU [facility] Comment: HIV-1 antigen and HIV-1/HIV-2 antibodies were not detected. There is no laboratory evidence of HIV infection. PLEASE NOTE: This information has been disclosed to you from records whose confidentiality may be protected by state law. If your state requires such protection, then the state law prohibits you from making any further disclosure of the information without the specific written consent of the person to whom it pertains, or as otherwise permitted by law. A general authorization for the release of medical or other information is NOT sufficient for this purpose. For additional information please refer to http://education.Invup/faq/KVK319 (This link is being provided for informational/ educational purposes only.) The performance of this assay has not been clinically validated in patients less than 2 years old. Test Performed at: [facility] [address] [place] [address] JEREMY LAST DO,MPH Blood BLOOD SPECIMEN / Unknown 11/01/2021 12:33 PM CDT 11/01/2021 12:36 PM CDT Jose De Jesus Power III, MD LAB - CHEMISTRY O RDERABLES [facility] [address] [place] [address] from Last 3 Months or Most Recently Relevant to Health Maintenance Care Teams Flat Examiner Relationship Specialty Start Date End Date Jose De Jesus Power III, MD [address] [id number] PCP - General Internal Medicine 10/08/22
--- OUTSIDE RECORDS SUMMARY | 2024-06-29 02:57 | XMS_ITS | Data Portability ---
Author Organization [place] - [facility] [place], Main Office Address [address] [place] [address] Assessment Encounter Date Assessment Date Assessment LastModified by Organization Details LastModified Time 07/29/2023 07/29/2023 Assessment: Mild OSAHS, AHI = 8 PLMD Plan: The following were reviewed and explained to the patient: primary care/referral note [facility] home sleep study 11/11/21 AHI = 8, supine AHI = 9 [facility] titration sleep study 12/31/21 sleep onset = 11.5 minutes, REM onset = 214 minutes, Will & Ximena Shant nasal mask @ 7 cmH2O, PLMI = 41 Elevation in periodic limb movement index may be contributed by paroxetine. Non-pharmacologi c therapy options for periodic limb movement disorder include avoidance of aggravating drugs and substances, mental alerting activities, short daily hemodialysis for patients in renal failure, exercise, leg massage, stretching calf muscles, use of a weighted blanket and applied heat. Patient will cut down on caffeine intake. We will check BUN, Creatinine, Vitamin E, Vitamin B12, RBC folate, Iron, TIBC, Ferritin, ESR, Magnesium, Hgb and Hct levels. PAP compliance downloaded and interpreted x 20 minutes. Data reviewed and explained to the patient. Average apnea/hypopnea index (AHI) is 1.8. Patient used PAP > 4 hours 26% of the time. PAP is set at 7 cmH2O. PAP will remain at 7 cmH2O. Keep ramp start at 4 cmH2O. Keep ramp duration at 20 minutes. Keep EPR + 1. Keep humidifier level at 4. Keep tube temperature 74 F. Oxygen supplementation: none Patient is benefiting from PAP therapy. Encouraged patient to maintain PAP use more than 70% of the time. Statement of PAP use and benefits will be sent to the home care store. Educated the patient on problems and solutions associated with positive airway pressure (PAP) use. Difficulty tolerating pressure, mask leaks, intolerance of interface, nasal congestion, claustrophobic response, dry mouth, and unintentional mask removal during sleep were covered. Provided the patient with a list of local home care stores where positive airway pressure (PAP) units, accoutrement, and services are available. Home care store selection is based on patient's insurance carrier. Patient will setup an appointment with [facility] for supplies and pressure adjustments. A major predictor of success with use of PAP is follow-up with both the respiratory supplier and the treating physician. The download results can show the treating physician information about adherence to treatment, residual AHI while on treatment and presence of large mask leakage. This information is especially helpful if the patient has residual sleepiness despite treatment. General information on sleep disordered breathing, evaluation of sleep disordered breathing, treatment with PAP therapy, and living with PAP therapy were covered. We discussed with the patient the impact of weight on: Sleep disordered breathing TUCKER We discussed with the patient the benefit of PAP therapy on: Sleep disordered breathing Anxiety TUCKER Educated the patient on sleep hygiene measures. Relaxing rituals to rest easy, understanding foods with positive and negative impact on sleep, creating a peaceful sleep environment, timing of exercise, using herbal sleep aids, and practicing sleep-friendly meditation were covered. To determine how much sleep is needed, the patient will assess where she falls on the spectrum, examine what lifestyle factors such as work schedules and stress are affecting the quality and quantity of sleep. In general, adults need 7-9 hours of sleep. Educated the patient regarding foods that promote sleep. These include but are not limited to cherries, bananas, toast, oatmeal, and warm milk. Educated the patient regarding foods and drinks to avoid before bedtime. These include but are not limited to aged cheese, chocolate, spicy foods, tomato-based sauces, soy, ginseng tea and processed meat. Advocated influenza vaccination annually and pneumonia vaccination in 2038. Advocated weight loss through diet and exercise. Patient's ideal body weight according to height and gender is up to 130 lbs. Encouraged patient to adjust caloric intake to maintain/achieve ideal body weight, emphasizing on fruits, vegetables, whole grains, and fat-free or low-fat products. These include lean meats, poultry, fish, beans, eggs, and nuts and foods that are low in saturated fats, trans-fats, cholesterol, salt (sodium), and glycemic index. Stressed the importance of regular exercise up to the patient's capacity limits. In this case, we recommend 20 min daily walking, 2 days a week of resistance training. Patient to monitor BP daily and bring records to PCP for further management. Follow-up: 3 weeks [email or web address] Not available 07/29/2023 15:44:31 Plan of Treatment Reminders Order Date Submit Date Provider Last Modified By Organization Details Last Modified Time Details Appointments None recorded. Lab iron + TIBC + ferritin, serum 2023 024 [email or web address] 25 [facility] (Lab), [address] [place], [address], 14:19:15 folate, RBC 2023 024 [email or web address] [facility] (Lab), [address] [place], [address], 14:19:16 vitamin B12, serum 2023 024 [email or web address] 25 [facility] (Lab), [address] [place], [address], 4 14:19:16 ESR (erythrocyt e sedimentati on rate), blood 2023 024 [email or web address] 25 [facility] (Lab), [address] [place], [address], 4 14:19:16 hemoglobin + hematocrit, blood 2023 024 [email or web address] 25 [facility] (Lab), [address] [place], [address], 4 14:19:16 bun (blood urea nitrogen), serum or plasma 2023 024 [email or web address] 25 [facility] (Lab), [address] [place], [address], 4 14:19:16 creatinine, serum or plasma 2023 024 [email or web address] 25 [facility] (Lab), [address] [place], [address], 4 14:19:17 magnesium, serum or plasma 2023 024 [email or web address] 25 [facility] (Lab), [address] [place], [address], 4 14:19:17 vitamin E, serum 2023 024 [email or web address] 25 [facility] (Lab), [address] [place], [address], 4 14:19:17 Referral None recorded. Procedures None recorded. Surgeries None recorded. Imaging None recorded. Medication Orders None recorded. Patient TargetsNo targets recorded. Patient InstructionsNo instructions recorded. Reason for Referral None Reported. Results Created Date Observation Date Name Description Value Unit Range Abnormal Flag Note LastModifiedBy Organization Detail LastModifiedTime 09/26/1909/29/2023 IRON, TIBC AND NINA TIN PANEL iron, total 96 mcg/d L 40-190 normal Not Available [address] [address] [place], [address], 09/29/2023 19:11:17 09/26/1909/29/2023 IRON, TIBC AND NINA TIN PANEL iron binding capacity 260 mcg/d L_(ca lc) 250-45 0 normal Not Available [facility] [address] [address] [place], [address], 09/29/2023 19:11:17 09/26/1909/29/2023 IRON, TIBC AND NINA TIN PANEL % saturation 37 %_(ca lc) 16-45 normal Not Available [facility] LEYIO [address] [address] [place], [address], 09/29/2023 19:11:17 09/26/19 24 09/29/2023 IRON, TIBC AND NINA TIN PANEL ferritin 23 NG/mL 16-232 normal Not Available [address], [address], 09/29/2023 19:11:17 09/26/19 24 09/29/2023 MAGNE SIUM magnesium 1.9 mg/dL 1.5-2. 5 normal Not Available [address], [address], 09/29/2023 19:11:18 09/26/19 24 09/29/2023 BUN/C REATI NINE RATIO urea nitrogen (BUN) 10 mg/dL 7-25 normal Not Available [address], [address], 09/29/2023 19:11:18 09/26/19 24 09/29/2023 BUN/C REATI NINE RATIO creatinine 0.79 mg/dL 0.50-0 .99 normal Not Available [address], [address], 09/29/2023 19:11:18 09/26/19 24 09/29/2023 BUN/C REATI NINE RATIO eGFR 92 mL/mi n/1.7 3m2 > or = 60 normal Not Available [address], [address], 09/29/2023 19:11:18 09/26/19 24 09/29/2023 BUN/C REATI NINE RATIO BUN/creatini ne ratio SEE NOTE: (calc ) 6-22 Not Repor ricardo: BUN and Creat inine are withi n refer ence range . Not Available [address], [address], 09/29/2023 19:11:18 09/26/1909/29/2023 HEMAT OCRIT hematocrit 40.7 % 35.0-4 5.0 normal Not Available [facility] [address] [address] [place], [address], 09/29/2023 19:11:19 09/26/1909/29/2023 HEMOG LOBIN hemoglobin 12.9 g/dL 11.7-1 5.5 normal Not Available [facility] [address] [address] [place], [address], 09/29/2023 19:11:19 09/26/19 24 09/29/2023 SED RATE BY MODIF IED WESTE RGREN sed rate by modified westergren TNP TEST NOT PERFO RMED Due to a labor atory error , the speci men was inadv erten tly route d to the incor rect depar tment or labor atory and is no longe r valid for testi ng. Not Available [address] [place], [address], 09/29/2023 19:11:20 09/26/1909/29/2023 FOLAT E, RBC folate, RBC 473 NG/mL _RBC >280 normal Not Available [facility] [address], [address], 09/29/2023 19:11:20 09/26/1909/29/2023 VITAM IN B12 vitamin B12 297 pg/mL 200-11 00 normal Pleas e Note: Altho ugh the refer ence range for vitam in B12 is 200-1 100 pg/mL , it has been repor ricardo that betwe en 5 and 10% of patie nts with value s betwe en 200 and 400 pg/mL may exper ience neuro psych iatri c and hemat ologi c abnor malit ies due to occul t B12 defic iency ; less than 1% of patie nts with value s above 400 pg/mL will have sympt oms. Not Available [facility] [address] [address] [place], [address], 09/29/2023 19:11:21 09/26/19 24 09/29/2023 VITAM IN E (TOCO PHERO L) vitamin E, alpha tocopherol TNP TEST NOT PERFO RMED Speci men recei maxx at [facility] rect tempe ratur e. Not Available [facility] [address] [address], [place], [address], 09/29/2023 19:11:21 11/06/19 21 11/05/2020 MAMMO , scree steph, digit al, bilat eral No observ ation record ed. [id number], [place], [address], 05/28/2022 08:14:43 11/07/19 21 11/05/2020 MAMMO , scree steph, digit al, bilat eral No observ ation record ed. [id number] [facility], [place], [address], 05/28/2022 08:14:43 11/15/19 22 11/11/2021 home sleep study No observ ation record ed. [id number] [facility] [address] [place], [address], 05/28/2022 08:14:43 01/01/20 22 12/31/2021 MAMMO , scree steph, bilat eral No observ ation record ed. [id number] [facility], [place], [address], 05/28/2022 08:14:43 01/03/20 22 12/31/2021 polys omnog murtaza, titra tion study No observ ation record ed. [id number] Not Available 05/28/2022 08:14:43 Result Notes None recorded. Problems Name Problem SNOMED Code Status Onset Date Resolution Date Notes Provider Name and Address Organization Details Recorded Time Anxiety disorder 137704706 Active Not Available [facility] 3 08:09:33 Suppressio n of menstruati on Completed Not Available [facility] 3 08:09:33 Depressive disorder 11738609 Active Not Available [facility] 3 08:09:33 Periodic limb movement disorder 327398209 Active 2023 Del Zuluaga MD [address], [place], [address] , [facility] 4 15:38:06 Obstructiv e sleep apnea syndrome 55151448 Active 2023 Del Zuluaga MD [address], [place], [address] , [facility] 4 15:39:01 Notes:Ferritin 09/26/23 23 n g/mL B12 09/26/23 297 pg/mL Medical History: Anxiety Bruxism Obesity with mild OSAHS, AHI = 8, 11/11/21, on CPAP c/o IVRC TUCKER Iron deficiency B12 deficiency PLMD Procedure History: Right breast benign biopsy 1991 Left breast benign biopsy 2010 Uterine rupture surgery 2013 Occupational History: Dental training program assistant Problem Notes None recorded. Procedures Surgical History Date Name Laterality Status Provider Name and Address Organization Details Recorded Time 1 Most Recent Mammogram completed Not Available [facility] 05/28/2022 08:06:43 0 Date of Last Pap Smear completed Not Available [facility] 05/28/2022 08:06:43 4 Tubal Ligation completed Not Available [facility] 05/28 08:06:43 4 PROTOCOL MANAGER Procedure completed Not Available [facility] 2022 08:06:43 2 Breast Biopsy completed Not Available [facility] 2022 08:06:43 2 Breast Biopsy completed Not Available [facility] 2022 08:06:43 Imaging Results Imaging Date Name Status LastModified by Organiz ation Details LastModified Time 11/05/2020 MAMMO, screening, digital, bilateral completed [id number] [address] [place] [address] [address], [place], [address], 05/28/2022 08:14:43 11/05/2020 MAMMO, screening, digital, bilateral completed [id number] [facility] [address] [facility] [address], [place], [address], 05/28/2022 08:14:43 12/31/2021 polysomnogram, titration study completed [id number] Information not available 05/28/2022 08:14:43 12/31/2021 MAMMO, screening, bilateral completed [id number] [address] [facility] [address], [place], [address], 05/28/2022 08:14:43 11/11/2021 home sleep study completed [id number] [facility] [address] [place], [address], 05/28/2022 08:14:43 Procedure Notes None recorded. Medical Equipment None Reported. Allergies Allergen ID Allergen Name Allergen Category Reaction Reaction Severity Criticality Documentation Date Start Date Code Code System Note Provider Name and Address Organization Details Recorded Time 51508 Effexor medicatio n rash moderate Not available 07/29/2023 56939 2 RxNorm Rashunda MARGARET Yeung null, [place] - [facility] [employer] 15:08:14 Medications Name Sig Start Date Stop Date Status Note LastModified by Organization Details LastModified Time venlafaxine ER 37.5 mg capsule,ext ended release 24 hr TAKE 1 CAPSULE BY MOUTH EVERY DAY FOR ANXIETY 07/28 completed Not Available Not Available Not Available paroxetine 10 mg tablet TAKE 1 TABLET BY MOUTH DAILY active Not Available Not Available No t Available azithromyci n 250 mg tablet TK TWO TS AT ONCE CRYSTAL THEN TK ONE T - D FOR FOUR DAYS active Not Available Not Available No t Available hydrocodone 5 mg-acetamin ophen 325 mg tablet TK 1 T PO Q 6 H PRN 07/22 completed Not Available Not Available Not Available sertraline 100 mg tablet TK 1 T PO D active Not Available Not Available No t Available Formula tablet 1 tablet po qd active Not Available Not Available No t Available penicillin V potassium 500 mg tablet TK 1 T PO QID TAT 06/08 completed Not Available Not Available Not Available alprazolam 0.5 mg tablet TAKE 1 TABLET BY MOUTH THREE TIMES DAILY NEEDED FOR ANXIETY active Not Available Not Available No t Available amoxicillin 875 mg tablet Take 1 tablet every 12 hours by oral route. 07/22 completed Not Available Not Available Not Available cephalexin 500 mg capsule TAKE 1 CAPSULE BY MOUTH EVERY 8 HOURS FOR 7 DAYS 10/14 completed Not Available Not Available Not Available paroxetine 20 mg tablet TAKE 1 TABLET BY MOUTH EVERY DAY 07/28 completed Not Available Not Available Not Available fluoxetine 10 mg capsule TAKE 1 CAPSULE BY MOUTH DAILY 10/14 completed Not Available Not Available Not Available buspirone 7.5 mg tablet TK 1 T PO BID active Not Available Not Available No t Available Levaquin 500 mg tablet Take 1 tablet every 24 hours by oral route for 10 days. 12/31 completed Not Available Not Available Not Available lorazepam 1 mg tablet TK 1 T PO Q 12 H PRN 06/08 completed Not Available Not Available Not Available Cheratussin AC 10 mg-100 mg/5 mL oral liquid TK 10 ML PO Q 6 H FOR 5 DAYS active Not Available Not Available No t Available paroxetine 40 mg tablet TAKE 1 TABLET BY MOUTH EVERY DAY 10/14 completed Not Available Not Available Not Available sertraline 50 mg tablet TAKE ONE TABLET BY MOUTH ONCE DAILY active Not Available Not Available No t Available amoxicillin 500 mg-potassiu m clavulanate 125 mg tablet TK 1 T PO Q 12 H 07/22 completed Not Available Not Available Not Available Ventolin HFA 90 mcg/actuati on aerosol inhaler INHALE 2 TO 4 PFS PO Q 4 H PRN active Not Available Not Available No t Available Jolivette 0.35 mg tablet TK 1 T PO ONCE D active Not Available Not Available No t Available Boostrix Tdap 2.5 Lf unit-8 mcg-5 Lf/0.5 mL intramuscul ar suspension INJECT 0.5 ML INTRAMUSC ULARLY DIRECTED. active Not Available Not Available No t Available Se- 19 (with docusate) 29 mg iron-1 mg-25 mg tablet TK 1 T PO D active Not Available Not Available No t Available Lo Loestrin Fe 1 mg-10 mcg (24)/10 mcg (2) tablet TAKE ONE T PO D active Not Available Not Available No t Available 19 (with docusate) 29 mg iron-1 mg-25 mg tablet Take 1 tablet by oral route. active Not Available Not Available No t Available Vitals Date Recorded Body mass index (BMI) Body height Body weight Systolic blood pressure Diastolic blood pressure Provider Name and Address Organization Details Last Updated DateTime 07/17/2020 38.2 kg/m2 162.56 cm 147699.3 8 g 110 mm[Hg] 78 mm[Hg] Not Available [facility] 3 08:08:14 Date Recorded Body mass index (BMI) Body height Oxygen saturation Oxygen saturation in Arterial blood by Pulse oximetry Heart rate Body temperature Body weight Systolic blood pressure Diastolic blood pressure Provider Name and Address Organization Details Last Updated DateTime 2 36.4 kg/m2 162.56 cm 99 % 99 % 84 /min 76 [degF] 07758.5 8 g 140 mm[Hg] 90 mm[Hg] Not Available [facility] 3 08:08:14 Date Recorded Body mass index (BMI) Body height Oxygen saturation Oxygen saturation in Arterial blood by Pulse oximetry Heart rate Body temperature Body weight Systolic blood pressure Diastolic blood pressure Provider Name and Address Organization Details Last Updated DateTime 2 36.1 kg/m2 162.56 cm 98 % 98 % 78 /min 98.6 [degF] 05053.5 5 g 117 mm[Hg] 70 mm[Hg] Not Available [facility] 3 08:08:15 Date Recorded Body mass index (BMI) Body height Oxygen saturation Oxygen saturation in Arterial blood by Pulse oximetry Heart rate Body temperature Body weight Systolic blood pressure Diastolic blood pressure Provider Name and Address Organization Details Last Updated DateTime 2 37.2 kg/m2 162.56 cm 98 % 98 % 83 /min 97.6 [degF] 76894.5 4 g 110 mm[Hg] 80 mm[Hg] Not Available [facility] 3 08:08:15 Date Recorded Body weight Body mass index (BMI) Body height Oxygen saturation Oxygen saturation in Arterial blood by Pulse oximetry Heart rate Body temperature Systolic blood pressure Diastolic blood pressure Provider Name and Address Organization Details Last Updated DateTime 4 01018.6 2 g 35.5 kg/m2 162.56 cm 98 % 98 % 76 /min 97.7 [degF] 120 mm[Hg] 76 mm[Hg] Theresa Yeung CMA [facility] 15:04:19 Date Recorded Heart rate Respiratory rate Provider Brianna soliz and Address Organization Details Last Updated DateTime 07/29/2023 76 /min 15 /min Del Zuluaga MD [address] [facility] [address], [place], [address], [place] [employer] [facility] [employer] 07/29/2023 15:53:53 Social History Question Answer Notes LastModified by Organizat ion Details LastModified Time Tobacco Smoking Status Never Smoker Not Available [facility] 05/28/2022 08:06:37 What Is Your Level Of Alcohol Consumption? Occasional [id number] Information not available 05/28/2022 What Is Your Level Of Caffeine Consumption? Moderate [id number] Information not available 05/28/2022 In The 14 Days Before Symptom Onset, Have You Had Close Contact With A Laboratory-confir med COVID-19 While That Case Was Ill? No [id number] Information not available 05/28/2022 In The 14 Days Before Symptom Onset, Have You Had Close Contact With A Person Who Is Under Investigation For COVID-19 While That Person Was Ill? No [id number] Information not available 05/28/2022 What Type Of Diet Are You Following? REGULAR [id number] Information not available 05/28/2022 Which Illicit Or Recreational Drugs Have You Used? No [id number] Information not available 05/28/2022 Do You Or Have You Ever Used E-cigarettes Or Vape? Never Used Electronic Cigarettes [id number] Information not available 05/28/2022 Have You Ever Been Counseled For Unhealthy Alcohol Use? No [id number] Information not available 05/28/2022 Do You Or Have You Ever Used Smokeless Tobacco? Never Used Smokeless Tobacco [id number] Information not available 05/28/2022 Do You Use Any Illicit Or Recreational Drugs? No [id number] Information not available 05/28/2022 Has Tobacco Cessation Counseling Been Provided? No [id number] Information not available 05/28/2022 Have You Recently Traveled Abroad? No [id number] Information not available 05/28/2022 Do You Have Any Dietary Restrictions? No [id number] Information not available 05/28/2022 Do You Or Have You Ever Used Any Other Forms Of Tobacco Or Nicotine? No [id number] Information not available 05/28/2022 Sex: Unknown Functional Status Question Answer Note LastModified by Organizat ion Details LastModified Time What is your exercise level? Occasional [id number] Information not available 05/28/2022 Mental Status None recorded. Family History Relationship Description Onset Age of this Age Resolved Age Notes LastModified by Organization Details LastModified Time Maternal Grandmother Malignant tumor of breast [id number] Not available 05/28/2022 08:06:45 Mother Malignant tumor of breast [id number] Not available 05/28/2022 08:06:45 Father Obstructive sleep apnea syndrome [email or web address] Not available 2023 15:29:06 Father Hypertensive disorder [email or web address] Not available 2023 15:29:13 Father Cerebrovascu lar accident [email or web address] Not available 03/2023 15:29:21 Maternal Grandfather Myocardial infarction [email or web address] Not available 07/28 15:30:02 Maternal Grandmother Diabetes mellitus [email or web address] Not available 2023 15:30:50 Son Crohn's disease [email or web address] Not available 2023 15:31:18 Medical History Condition Response BLINDNESS N RHEUMATIC FEVER N KIDNEY STONES N BLADDER PROBLEMS N MRSA N OTHER # 1 N POLIO N LUNG DISEASE/DISORDER N HISTORY OF DRUG ABUSE N COPD N RADIATION / CHEMOTHERAPY N Other # 2 N BLOOD DISEASES N SURGERY N EAR OR HEARING PROBLEMS N MUMPS N SHINGLES N FEMALE PROBLEMS / INFECTIONS N DEPRESSION (INCLUDING POST ) Y BOWEL PROBLEMS N STROKE/TIA N THYROID DISEASE N ULCERS N BENIGN PROSTATIC HYPERPLASIA N MEASLES N CERVICALGIA N HYPOTENSION N TB SKIN TEST N MYOCARDIAL INFARCTION N OBESITY N PARAPELGIA N GERD/NAUSEA N ANEURYSM N URINARY/BLADDER/KIDNEY PROBLEMS N CORONARY ARTERY DISEASE (CAD) N MENIERE'S DISEASE N ADDICTION CONCERNS N ENDOMETRIOSIS N USE OF BLOOD THINNERS N SKIN PROBLEMS N EMPHYSEMA N GASTROINTESTINAL DISORDER N MUSCLE,JOINT OR BONE PROBLEMS N GASTROINTESTINAL BLEEDING N BLOOD CLOTS N ASTHMA N CATARACTS N ERECTILE DYSFUNCTION N GI PROBLEMS N CHF N Low Testosterone N NEUROPATHY N INFERTILITY N AIDS/HIV N FRACTURES N CHEMOTHERAPY / RADIATION N VISION/EYE PROBLEMS N LIVER DISEASE N MALE HYPOGONADISM N HYPERTENSION N TOURETTE'S N ANXIETY DISORDER Y BLOOD TRANSFUSION N ANEMIA/BLOOD DISORDER N CHRONIC EAR INFECTIONS N BRONCHITIS N TUBERCULOSIS N GLAUCOMA N FOOT PROBLEM N DIVERTICULITIS N SLEEP APNEA N CHICKENPOX N ALLERGIES/HAYFEVER N INFECTIOUS DISEASE N PROSTATE N HEART ARRHYTHMIA N INSOMNIA N HIGH CHOLESTEROL / HYPERLIPIDEMIA N EYE PROBLEMS N HYPERTHYROIDISM N EATING DISORDER N EDEMA N CHRONIC PAIN SYNDROME N CAROTID BLOCKAGE N CONSTIPATION N BACK / NECK PROBLEMS N HAVE YOU BEEN HOSPITALIZED OR SEEN IN [facility] IN THE PAST YEAR ? N ATHEROSCLEROSIS N BREAST PROBLEMS N DIALYSIS N ECZEMA N FIBROMYALGIA N OSTEOPOROSIS N ARTHRITIS N NO SIGNIFICANT PAST MEDICAL HISTORY N APPENDICITIS N DIABETES, TYPE N BAD TEETH N HEARTBURN / REFLUX N ADD/ADHD N AUTISM SPECTRUM DISORDER (ASD) N HEPATITIS / LIVER DISEASE N PULMONARY DISEASE N GOUT N SLEEP DISORDER N ALZHEIMER'S DISEASE N PAIN N DEMENTIA N HERPES N SEIZURES/EPILEPSY N HEADACHES/MIGRAINES N VASCULAR DISEASE N PACEMAKER N DIZZINESS N HEART DISEASE/HEART PROBLEMS N KIDNEY DISEASE N SCARLET FEVER N MULTIPLE SCLEROSIS N DEVELOPMENTAL OR BEHAVIORAL DISORDERS N MENTAL DISORDER/ILLNESS N CANCER: SPECIFY N CARDIAC ARRHYTHMIA N PNEUMONIA N ATRIAL FIBRILLATION N Gall Stones N PULMONARY EMBOLISM N AUTOIMMUNE DISEASE N Gynecological History Statement/Question Response Date of Last Pap Smear 06/09/2019 Current Control Method Tubal Ligat ion Age at Menarche 12 Most Recent Mammogram 11/05/2020 Date of LMP 06/21/2020 Breast Problems no Obstetrics History GPAL:G 7 P 5 0 2 5 Type Value Full Term 5 Induced 1 Spontaneous 1 Living 5 Total 7 Past Encounters Encounter ID Performer Location Encounter Start Date Encounter Closed Date Diagnosis/Indication Diagnosis SNOMED-CT Code Diagnosis ICD10 Code Diagnosis Note [id number] _ATHENA_M IGRATION_ DEFAULT_1 _1 , 07/17/2020 00:00:00 07/17/2020 14:09:25 [id number] [facility] Mario [address] [place] [id number] 10/14/2021 00:00:00 10/14/2021 18:58:14 [id number] [facility] Mario llalonso Av[address] [place] [address] [address] 12/06/2021 00:00:00 12/06/2021 18:40:02 [id number] [facility] Mario truong [address] [facility], [place] [address] 03/10/2022 00:00:00 03/10/2022 22:04:18 [id number] Del Zuluaga MD [facility] Pulmonolo gy Richey [address] [facility] [address] [place] [address] 07/29/2023 14:56:10 07/30/2023 08:52:05 Periodic limb movement disorder 576452734 G47.61 D50.8 E83.42 Obstructiv e sleep apnea syndrome [id number] G47.33 Health Concerns Section Related Observation LastModified by Organization Detai ls LastModified Time None Recorded Concern Status LastModified by Organization Details LastModified Time None Recorded Advance Directives Directive None Recorded Payers Encounter Date Sequence Insurance Name Policy Number Policy Parker Covered Member ID Parker Member ID Guarantor Name 07/29/2023 1 [facility] - DOS ON OR AFTER 20 (MEDICAID REPLACEMENT - HMO) Camille Beavers [id number] Camille Beavers Notes Date Note Type Note Provider Name and Address Organization Details Recorded Time 07/29/2023 text/html Primary care/Referring provider: Johnny Power III, MD At home since 03/18/22, the patient uses a [employer]Med AirSense 11 autoset unit with heated humidification. The patient does not need the ramp to start low and go up slowly on the pressure anymore. There is no xerostomia in a.m. There is no hose/mask condensation with water. The patient wears a [employer]Med medium AirFit P10 For Her nasal pillows without chin strap. There is no claustrophobia, no nostril/nose bridge irritation, no facial rash, no facial numbness, no nosebleeding. The patient feels more refreshed upon waking and daytime alertness is improved. Energy levels are sustained for the remainder of the day. At home, the patient sleeps from 11 pm to 6 am and wakes up without an alarm. Snoring: heavy, since . Snorting: no Choking: no Coughing: no Gasping: yes Gagging: no Sighing: no Witnessed apnea: yes Twitching or jerking of leg(s), arm(s), body, head: yes Teeth grinding: yes Teeth clenching: yes Sleeptalking: no Sleepwalking: no Sleep crying: no Bedwetting: no Tongue/lip/gum/michelle k biting: no Sleeping with open mouth: yes Sleep paralysis: no Hypnagogic hallucinations: no Hypnopompic hallucinations: no Vivid dreams: yes Difficulty with sleep onset: no Difficulty with sleep maintenance: yes Sleep interruptions: nocturia x 1 Patient wakes up with: fatigue, headaches, cognitive impairment Daytime cataplexy: no Morning hypersomnolence: no Afternoon hypersomnolence: yes Caffeine sources in diet: coffee 1 cup per day, tea 1/3 cup per day, soda 1/3 fountain drink per day, chocolate 1 candy bar per week Associated medical and psychiatric conditions: Congestive heart failure: no Coronary artery disease: no Myocardial infarction: no Hypertension: no Stroke: no Bronchial asthma: no Chronic obstructive pulmonary disease: no Depression: no Bipolar disorder: no Anxiety: yes Panic disorder: no Posttraumatic stress disorder: no Attention deficit and hyperactivity disorder: no Obsessive Compulsive disorder: no Schizophrenia: no Schizoaffective disorder: no Personality disorder: no Chronic analgesic use: no Chronic sedative/hypnotic use: no EPWORTH SLEEPINESS SCALE (ESS) CHANCE OF DOZING SCORE 0 = would never doze 1 = slight chance of dozing 2 = moderate chance of dozing 3 = high chance of dozing SITUATION AND CHANCE OF DOZING Sitting and reading - 1 Watching television - 0 Sitting inactive in a public place (e.g. a theater or meeting) - 0 As a passenger in a car for an hour without a break - 1 Lying down to rest in the afternoon when circumstances permit - 1 Sitting and talking to someone - 0 Sitting quietly after lunch without alcohol - 0 In a car, while stopped for a few minutes in the traffic - 0 TOTAL SCORE 3 Subjectively, patient has a slight chance of dozing. Del Zuluaga MD [address] [facility], [place] [address], [place], [address], [place] - S [employer] 07/29/2023 15:54:48 OBGyn Episode No OBEpisode recorded.
--- NOTE | 2024-06-29 03:00 | PC.NURSE ---
Pharmacy was called regarding medication. No answer. Will continue to watch for medication.
[2024-06-29 03:11] VITALS: BP 158/89; PULSE 102; RESP 20; O2SAT 98
[2024-06-29 03:14] VITALS: BP 158/89; PULSE 80; RESP 18; TEMP 36.8; O2SAT 98
--- NOTE | 2024-06-29 03:18 | ED_ITS ---
HPI - Ear Problem General Chief complaint: Ear Stated complaint: ear swelling and rash Time Seen by Provider: 06/29/24 02:57 History of Present Illness HPI Narrative: 49-year-old female with history of anxiety presenting to the emergency department with complaints of itchiness behind her right ear, left ear, elbows. She states that her dog was sprayed by skunk and she feels like she got some of the oil on her hands. She went to bed last night and was scratching behind her ears and elbows which are acutely itchy and inflamed appearing today. She does rash behind her right ear with some swelling behind her right ear. Did not take anything for symptom control such as Pepcid or diphenhydramine. Was recently started on antibiotics for her tooth and feels like could also be related to the penicillin but unlikely as she has been doing well on this and no history of penicillin allergy. No shortness of breath. Denies any nausea, vomiting, headache, vision change, abdominal pain, back pain, diarrhea. Related Data Home Medications ?Medication ?Instructions ?Recorded ?Confirmed ?Last Taken ?Type alprazolam 0.5 mg tablet 0.5 mg PO 11/05/23 11/05/23 Unknown History paroxetine HCl 20 mg tablet 10 mg PO DAILY 11/05/23 11/05/23 Unknown History Allergies Allergy/AdvReac Type Severity Reaction Status Date / Time venlafaxine (From Effexor) Allergy Intermediate Hives Verified 06/29/24 02:56 Review of Systems Review of Systems: As [facility] Past Medical History Medical History Sleep apnea Rupture of uterus Anxiety and depression Surgical History Surgical History H/O colonoscopy History of lumpectomy of both breasts History of tubal ligation History of lumpectomy Family History Family History Father Hypertension Cerebrovascular accident Diabetes mellitus Depression Mother Hypertension Breast cancer Sibling Bipolar 1 disorder Grandparent Heart disease Arthritis Social History Social History Smoking status: Never smoker Alcohol intake: current Alcohol use details: soically Substance use: never Substance use type: does not use Do You Feel Safe in your Home?: Yes Lack of Transportation: No Lack of Food: Never True Current Housing: I Have Housing Concerned About Future Housing: No Difficulty Paying Gas/Electric Bills: No Difficulty Paying for Meds: No Currently Unemployed: No Education: Trade/Vocational Certificate Difficulty w/ Childcare or Family Care: No Living arrangements: with family Occupation/Education: occupation Additional occupation/education comments: stay at home mom Gender identity (if verbalized by the patient): Female Sexual Orientation (if Verbalized by the Patient): Straight or Heterosexual Exam Narrative: GENERAL: [Well-appearing, well-nourished, and in no acute distress.] HEAD: [Normocephalic, atraumatic.] EYES: [PERRLA and EOMI.] ENT: Nares clear, no rhinorrhea or epistaxis. Mucous membranes moist. Urticarial looking rash behind her right ear, slight urticaria behind her left ear, no excoriations or hemorrhage. Otoscopic examination was clear without any effusions or otitis. NECK: Supple. CHEST: [Clear to auscultation. No respiratory distress.] HEART: [Regular rate and rhythm]. No murmur heard. [Normal peripheral pulses.] ABDOMEN: [Soft, nondistended], [nontender], [No rigidity or guarding] EXTREMITIES: Normal range of motion. [No edema.] SKIN: Warm, dry, urticarial rash behind both ears right worse than left, minimal urticarial rash on the elbows NEURO: [No focal deficits]. Alert and oriented [x3.] PSYCH: [Normal mood and affect.] Course Vital Signs Vital signs: Vital Signs Pulse Rate 102 H 06/29/24 03:11 Respiratory Rate 20 06/29/24 03:11 Blood Pressure 158/89 H 06/29/24 03:11 Pulse Oximetry 98 06/29/24 03:11 Pulse Rate 102 H 06/29/24 03:11 Respiratory Rate 20 06/29/24 03:11 Blood Pressure 158/89 H 06/29/24 03:11 Pulse Oximetry 98 06/29/24 03:11 Medical Decision Making MDM Narrative Medical decision making narrative: 49-year-old female presenting with signs and symptoms of contact dermatitis. Her dog was sprayed by a skunk and she felt like she got the orals on her hands. She states she did scratch behind her ears and in her hair as well as her elbows which are the areas that appear to have some excoriations and urticaria looking rash today. No tightest evidence, no signs of anaphylaxis, no difficulty breathing, no wheezing or diarrhea. No abdominal discomfort. She states that she did not wash any further close or pillows when she went home. Has not tried anything for symptoms. Will prescribe her triamcinolone cream and Pepcid here in the ED and prescribed steroid cream, diphenhydramine and Pepcid to take at home. Encouraged to go home and wash all the clothing or potential areas of contact exposure as well as take medications as directed. She was given return precautions. Patient is safe for discharge home at this time. Medical Records Medical records reviewed: Yes I reviewed the external patient's medical records. Vital Signs Vital Signs: Vital Signs Pulse Rate 102 H 06/29/24 03:11 Respiratory Rate 20 06/29/24 03:11 Blood Pressure 158/89 H 06/29/24 03:11 Pulse Oximetry 98 06/29/24 03:11 Pulse Rate 102 H 06/29/24 03:11 Respiratory Rate 20 06/29/24 03:11 Blood Pressure 158/89 H 06/29/24 03:11 Pulse Oximetry 98 06/29/24 03:11 Discharge Plan Discharge Clinical Impression: Contact dermatitis Patient Disposition: Home, Self-Care Condition: Stable Instructions: Antibiotic Form, Contact Dermatitis (ED) Additional Instructions: Apply the steroid cream to the areas that were itchy and inflamed, take diphenhydramine for itchiness as well as Pepcid for itchiness. Follow-up with regular doctor as needed. Return with any emergency concerns. Patient Language: French Prescriptions: New triamcinolone acetonide 0.1 % cream 1 applic topical BID Qty: 30 0RF famotidine [Pepcid] 20 mg tablet 20 mg PO BID PRN (Reason: Itching) Qty: 20 0RF diphenhydramine HCl 50 mg capsule 50 mg PO HS PRN (Reason: itching) Qty: 14 0RF No Action alprazolam 0.5 mg tablet 0.5 mg PO paroxetine HCl 20 mg tablet 10 mg PO DAILY Follow-up/Referrals: PHYSICIAN NOT ON STAFF,NONSTAFF [Primary Care Provider] - Time of Disposition: 03:21
--- OUTSIDE RECORDS SUMMARY | 2024-06-29 03:23 | XMS_ITS | Encounter Summary ---
Author Organization [facility] Address [address] [place] [address] Care Team Providers Care Rim Roller Operator Name Role Phone Justen Barr MD Primary Care Provider [phone] Tono MILAN MD, Francis G Primary Care Provider [phone] Encounter Details Date Type Department Care Team (Late st Contact Info) Description 11/05/2021 Telephone [facility] [address] [place] [address], [place] [phone] Jose De Jesus Power III, MD [address] [place] [address] Social History Tobacco Use Types Packs/Day [...] Please call back. Patient Call Back number: [phone] documented in this encounter Plan of Treatment Upcoming Encounters Date Type Department Care Team (Late st Contact Info) Description 08/08/2024 8:30 AM CDT Office Visit [facility] - Internal Med [address] [place] [address], [place] [address] Jose De Jesus Power III, MD [facility] [facility] [address] [phone] 04/21/2025 11:00 AM SPEECH LANGUAGE ASSISTANT Office Visit [facility] - Dermatology [address] [place] [address], [place] [phone] Valentine Tabor MD [address] [place] [address] [address] [facility] [place] [phone] documented as of this encounter Visit Diagnoses Not on filedocumented in this encounter Care Teams Rim Roller Operator Relationship Specialty Start Date End Date Justen Barr MD [address] [place] [address] [address] [place] [address] PCP - General 11/04/21 10/07/22 Jose De Jesus Power III, MD [address] [place] [address] [address] [phone] PCP - General Internal Medicine 10/08/22 documented as of this encounter
--- OUTSIDE RECORDS SUMMARY | 2024-06-29 03:23 | XMS_ITS | Clinical Summary ---
Author Organization [facility] Address [address] [place] [address] Care Team Providers Care Barrel Assembler Helper Name Role Phone Tono MILAN MD, Jose De Jesus Osborn Primary Care Provider [phone] Source Comments [facility],non-owned Affiliates and Associated Physician Practices is amultiple site organization consisting of ambulatory clinics and hospital sitesin [place], [place], [place] and [place]. This disclosure is being madepursuant to the Care Everywhere program and may not contain all information available regarding this patient. Last updated 17.[facility] Allergies Active Allergy Reactions Criticality Noted Date [...] Department Care Team Description 04/15/2024 1:00 PM TRAY CASTING MACHINE OPERATOR Office Visit [facility] - Dermatology [facility] [place] [address] Person, Lucia Allen APRN-Valentine Ron MD Bacterial [...] Comments Blood Pressure 136/75 03/21/2024 2:16 PM TRAY CASTING MACHINE OPERATOR Pulse 75 03/21/2024 2:16 PM TRAY CASTING MACHINE OPERATOR Temperature 36.4 C (97.6 F) 06/29/2023 10:51 AM CDT Respiratory Rate 16 01/25/2024 11:08 AM CDT Oxygen Saturation 99% 03/21/2024 2:16 PM TRAY CASTING MACHINE OPERATOR Inhaled Oxygen Concentration - - Weight 98.4 kg (217 lb) 03/21/2024 2:16 PM TRAY CASTING MACHINE OPERATOR Height 162.6 cm (5' 4 ) 03/21/2024 2:16 PM TRAY CASTING MACHINE OPERATOR Body Mass Index 37.25 03/21/2024 2:16 PM TRAY CASTING MACHINE OPERATOR Plan of Treatment Upcoming Encounters Date Type Department Care Team (Late st Contact Info) Description 08/08/2024 8:30 AM CDT Office Visit [facility] - Internal Med [address] [place] [address], [place] [phone] Jose De Jesus Power III, MD [address] [place] [address] [address]L [place] [phone] 04/21/2025 11:00 AM TRAY CASTING MACHINE OPERATOR Office Visit [facility] - Dermatology [address] [place] [address], [place] [address] Valentine Tabor MD [address] [place] [address] [address] [place] [phone] Health Maintenance Due Date Last Done Comments [...] Comments COMPREHENSIVE METABOLIC PANEL 02/26/2024 1:59 PM TRAY CASTING MACHINE OPERATOR LIPID PROFILE 02/26/2024 1:59 PM TRAY CASTING MACHINE OPERATOR ENDOSCOPY, COLON, SCREENING Routine 07/03/2022 11:04 AM CDT HEPATITIS C AB W/RFLX TO HCV RNA QN PCR Routine 11/01/2021 12:33 PM CDT Routine health maintenance HIV-1 HIV-2 ANTIBODY + HIV P24 AG PANEL Routine 11/01/2021 12:33 PM CDT Routine health maintenance from Last 3 Months or Most Recently Relevant to Health Maintenance Results * COMPREHENSIVE METABOLIC PANEL (02/26/2024 1:59 PM TRAY CASTING MACHINE OPERATOR) Pathologist [facility] Glucose 85 65 - 99 mg/dL [facility] [...] 29 U/L [facility] Comment: Test Performed at: [employer] [address] CESAR NICOLE MD 02/26/2024 1:59 PM TRAY CASTING MACHINE OPERATOR 02/26/2024 2:01 PM TRAY CASTING MACHINE OPERATOR Jose De Jesus Power III, MD LAB - CHEMISTRY O RDERABLES Performing Organization Address City/State/[facility] Co de Phone Number [address] [address] * (ABNORMAL) LIPID PROFILE (02/26/2024 1:59 PM TRAY CASTING MACHINE OPERATOR) Cholesterol 117 <200 mg/dL [facility] HDL Cholesterol [...] LDL-C. Jason GONZALEZ et al. ZACK. 2013;310(19): 2833-1041 (http://education.[employer]/faq/NNS602) CHOL/HDLC RATIO 2.4 <5.0 (calc) [facility] Non HDL Cholesterol 68 <130 mg/dL (calc) [facility] Comment: For patients with diabetes plus 1 major ASCVD risk factor, treating to a non-HDL-C goal of <100 mg/dL (LDL-C of <70 mg/dL) is considered a therapeutic option. Test Performed at: [facility] [address] [place] [address] CESAR NICOLE MD 02/26/2024 1:59 PM TRAY CASTING MACHINE OPERATOR 02/26/2024 2:01 PM TRAY CASTING MACHINE OPERATOR Jose De Jesus Power III, MD LAB - CHEMISTRY O RDERABLES [address] [address] * ENDOSCOPY, COLON, SCREENING (07/03/2022 11:04 AM [...] bowel preparation was evaluated using the BBPS ([place] Bowel Preparation Scale) with scores of: Right [...] Residual hemorrhoidal skin tags CPT copyright 2019 [employer]. All rights reserved. The codes documented in this report are preliminary and upon remote inpatient coder review may be revised to meet current compliance requirements. Caity Seymour MD 07/03/2022 11:50:01 AM Note Initiated On: 07/03/2022 11:04 AM Number of Addenda: 0 [facility] [address] [place] [address] [facility] 07/03/2022 11:0 4 AM CDT Caity Seymour MD GI PROCEDURE ORDER WILMER Performing Organization Address [facility] Co de Phone Number [facility] * HEPATITIS C AB W/RFLX TO HCV RNA QN PCR (11/01/2021 12:33 PM CDT) Hepatitis C Antibody NON-REACTI VE NON-REACT EDU [facility] Signal to Cut-Off 0.03 <1.00 [facility] Comment: HCV antibody was non-reactive. There is no laboratory evidence of HCV infection. In most cases, no further action is required. However, if recent HCV exposure is suspected, a test for HCV RNA (test code 02190) is suggested. For additional information please refer to http://education.[employer]/faq/WBO69r1 (This link is being provided for informational/ educational purposes only.) Test Performed at: [facility] [address] [place] [address] JEREMY LAST DO,MPH Blood BLOOD SPECIMEN / Unknown 11/01/2021 12:33 PM CDT 11/01/2021 12:36 PM CDT Jose De Jesus Power III, MD LAB - CHEMISTRY O RDERABLES Performing Organization Address City/[facility]/ZIP Co de Phone Number [facility] [address] [place] [address] * HIV-1 HIV-2 ANTIBODY + HIV P24 [...] purpose. For additional information please refer to http://education.[employer]/faq/QEH718 (This link is being provided for informational/ educational purposes only.) The performance of this assay has not been clinically validated in patients less than 2 years old. Test Performed at: [facility] [address] [place] [address] JEREMY LAST DO,MPH Blood BLOOD SPECIMEN / Unknown 11/01/2021 12:33 PM CDT 11/01/2021 12:36 PM CDT Jose De Jesus Power III, MD LAB - CHEMISTRY O RDERABLES [facility] [address] [place] [address] from Last 3 Months or Most Recently Relevant to Health Maintenance Care Teams Barrel Assembler Helper Relationship Specialty Start Date End Date Jose De Jesus Power III, MD [address] [phone] PCP - General Internal Medicine 10/08/22
--- OUTSIDE RECORDS SUMMARY | 2024-06-29 03:23 | XMS_ITS | CONTINUITY OF CARE DOCUMENT ---
Author Name ricardo silva Address Unknown Organization [facility] Address [address] [facility] [address] [place] [address] Phone [phone] Care Team Providers Care Color Laboratory Technician Name Role Phone Win SHIN, Richard Unavailable BELEN SHIN, ANGELA Unavailable BELEN SHIN, RUNDA Unavailable [phone] VITAL SIGNS Date Observation Value Provider blood [...] Jose Snowden urea nitrogen, blood 13 mg/dL [facility] carbon dioxide, serum, total 21 mmol/L [facility] chloride, serum 102 mmol/L [facility] potassium, serum 4.0 mmol/L [facility] sodium, serum 137 mmol/L [facility] platelet count 231 10*3/uL [facility] red blood cell distribution width 13.8 % Jose Snowden mean corpuscular hemoglobin concentration, RBC 34.2 g/dL Jose Snowden mean corpuscular hemoglobin, RBC 30.3 pg [facility] mean corpuscular volume, RBC 88 fL [facility] hematocrit, blood 35.8 % [facility] hemoglobin, blood 12.2 g/dL [facility] erythrocyte (RBC) count 4.04 10*6/mm3 [facility] monocyte count, blood 0.5 10*3/mm3 [facility] lymphocyte count, blood 1.5 10*3/mm3 [facility] monocytes as percent of blood leukocytes 6 % Jose Snowden lymphocytes as percent of blood leukocytes 19 % Jose Snowden leukocyte count, blood 7.7 10*3/mm3 Jose Snowden SOCIAL HISTORY Date Observation Value Provider smoking status never Carole Fleming FUNCTIONAL STATUS Date Observation Value Provider periodic limb movement index absent (0) Belkis Mejias INSURANCE PROVIDERS Payer name Policy type / Coverage type [place] [employer] [place] MEDICAID (2) Medicaid [id number] HEALTHCARE AND FAMILY SERVICES Medicaid 1 [id number]
[2024-06-29] MEDS: FAMOTIDINE 20 MG TABLET PO (03:30)
[2024-06-29] MEDS: TRIAMCINOLONE ACET 0.1% CREAM 15 GM TUBE 1 APPLIC TOPICAL (04:25)
[2024-06-29 04:34] VITALS: BP 127/74; PULSE 70; RESP 18; TEMP 36.6; O2SAT 99
[2024-06-29 04:35] VITALS: BP 127/74; PULSE 70; RESP 18; TEMP 36.6; O2SAT 99
== END 2024-06-29 04:38 | disposition home or self-care (01) ==
LOC: ANHED 03:20
PROVIDERS: Emergency Provider Student in an Organized Health Care Education/Training Program
DX: L25.9 Unspecified contact dermatitis, unspecified cause (principal); G47.30 Sleep apnea, unspecified; F41.9 Anxiety disorder, unspecified; F32.A Depression, unspecified
CPT/HCPCS: 99283; A9270

== ENCOUNTER 2024-12-23 10:45 | Outpatient (CLI) | payer OTHER, SELFPAY ==
--- NOTE | ~2024-12-23 | MM_ITS ---
EXAMINATION: MM screening yudith BI w manjit HISTORY: Screening TECHNIQUE: Craniocaudal and mediolateral oblique 3-D tomosynthesis images were obtained and synthetic 2-D images were generated. CAD analysis was submitted and interpreted. COMPARISON: Comparison to multiple prior studies sequentially, with oldest reviewed study dated , 12/22/2017 BREAST PARENCHYMAL COMPOSITION: There are scattered areas of fibroglandular density. FINDINGS: There is no evidence of suspicious mass, calcification, or architectural distortion to suggest malignancy in either breast. IMPRESSION: 1. No mammographic evidence of malignancy. 2. Recommend routine screening mammography in one year. BI-RADS Category 1: Negative Reviewed, dictated and finalized at location B.
--- OUTSIDE RECORDS SUMMARY | 2024-12-23 10:50 | XMS_ITS | Encounter Summary ---
Author Organization [facility] Address [address] [place] [address] Care Team Providers Care Fence Post Cutter Name Role Phone Justen Barr MD Primary Care Provider [phone] Tono MILAN MD, Francis G Primary Care Provider [phone] Encounter Details Date Type Department Care Team (Late st Contact Info) Description 11/05/2021 Telephone [facility] [address] [place] [address], [place] [phone] Jose De Jesus Power III, MD [address] [place] [address] Social History Tobacco Use Types Packs/Day Years Used Date Smoking Tobacco: Never Smokeless Tobacco: Never Alcohol Use Standard Drinks/Week Comments Yes 0 (1 standard drink = 0.6 oz pur e alcohol) Occ PHQ-2 Answer Date Recorded PHQ2 TOTAL SCORE 0 10/28/2021 Comments Unknown Sex and Gender Information Value Date Recorded Sex Assigned at Not on file Legal Sex Female 2:19 PM CDT Gender Identity Not on file Sexual Orientation Not on file documented as of this encounter Miscellaneous Notes * Telephone Encounter - Shivani Stern - 11/05/2021 3:24 PM CDT Current Provider name: Dr. Jose De Jesus Power Reason for call: Mrs. Camille Beavers returned a call from Claudette she believes in Dr. Power's office this afternoon. Please call back. Patient Call Back number: [phone] documented in this encounter Plan of Treatment Upcoming Encounters Date Type Department Care Team (Late st Contact Info) Description 02/27/2025 9:30 AM MANAGER TALENT Office Visit [facility] - Internal Med [address] [place] [address], [place] [address] Jose De Jesus Power III, MD [address] [place] [address] [address] [address] 04/21/2025 11:00 AM MANAGER TALENT Office Visit [facility] - Dermatology [address] [place] [address], [place] [address] Valentine Tabor MD [address] [place] [address] [address] [place] [phone] documented as of this encounter Visit Diagnoses Not on filedocumented in this encounter Care Teams Fence Post Cutter Relationship Specialty Start Date End Date Justen Barr MD [address] [place] [address] [address] [place] [phone] PCP - General 11/04/21 10/07/22 Jose De Jesus Power III, MD [address] [place] [address] [address] [address] PCP - General Internal Medicine 10/08/22 documented as of this encounter
--- OUTSIDE RECORDS SUMMARY | 2024-12-23 10:50 | XMS_ITS | Clinical Summary ---
Author Organization [facility] [employer] Address [address] [place] [address] Care Team Providers Care Call Centre Supervisor Name Role Phone Tono MILAN MD, Jose De Jesus Osborn Primary Care Provider [phone] Source Comments [facility] [employer],non-owned Affiliates and Associated Physician Practices is amultiple site organization consisting of ambulatory clinics and hospital sitesin [place], [place], [place] and [place]. This disclosure is being madepursuant to the Care Everywhere program and may not contain all information available regarding this patient. Last updated 17.[facility] [employer] Allergies Active Allergy Reactions Criticality Noted Date Comments Venlafaxine Rash Medium 01/25/2024 Venlafaxine Hcl Er Itching,Palpitations ,Rash,Shortnes s of Breath,Skin Reactions,Vision Changes High 01/25/2024 Medications * This document contains information received from the source organization and may not represent a complete record from that organization. * Be aware that medications may not be up to date on this document. Alwaysverify current medications with the patient. clindamycin (Cleocin) 1 % lotion Apply to affected area on back and groin daily. 30 day supply. 60 mL 2 5 Active Additional Information Patient not taking.Reported on 08/08/2024 hydrocortisone (Hytone) 2.5 % cream Apply to itchy bumps on back and groin twice daily as needed. 30 days supply. 30 g 3 5 Active Additional Information Patient not taking.Reported on 11/09/2024 ALPRAZolam (Xanax) 0.5 MG tabletIndicatio ns:HERIBERTO (generalized anxiety disorder) Take 1 (one) tablet by mouth once daily as needed for Anxiety 30 tablet 1 Active PARoxetine (Paxil) 10 MG tablet Take 1 (one) tablet by mouth once daily 90 tablet 1 Active busPIRone (Buspar) 15 MG tablet Take 0.5 (one-half) tablet by mouth 2 times daily 30 tablet 2 Active Active Problems Problem Noted Date Diagnosed Date INES (obstructive sleep apnea) 11/03/2022 HERIBERTO (generalized anxiety disorder) 10/28/2021 Class 2 obesity with body ma ss index (BMI) of 36.0 to 36.9 in adult 10/28/2021 Encounters * This document contains information received from the source organization and may not represent a complete record from that organization. Date Type Department Care Team Description 11/09/2024 Travel from Last 3 Months Immunizations Immunization Administration Dates Next Due TDAP (7yrs+) 01/25/2024 [...] Date Recorded Patient Health Questionnaire-2 Score 3 11/09/2024 Comments Unknown Sex and Gender Information Value Date Recorded Sex Assigned at Not on file Legal Sex Female 2:19 PM CDT Gender Identity Not on file Sexual Orientation Not on file Last Filed Vital Signs Vital Sign Reading Time Taken Comments Blood Pressure 134/82 11/09/2024 11:40 AM CDT Pulse 74 11/09/2024 11:40 AM CDT Temperature 36.2 C (97.2 F) 08/08/2024 8:44 AM CDT Respiratory Rate 16 01/25/2024 11:08 AM CDT Oxygen Saturation 100% 11/09/2024 11:40 AM CDT Inhaled Oxygen Concentration - - Weight 100.2 kg (221 lb) 11/09/2024 11:40 AM CDT Height 160 cm (5' 3) 08/08/2024 8:44 AM CDT Body Mass Index 39.15 08/08/2024 8:44 AM CDT Plan of Treatment Upcoming Encounters Date Type Department Care Team (Late st Contact Info) Description 02/27/2025 9:30 AM DUMPER MOLD CLEANER Office Visit [facility] - Internal Med [address] [place] [address], [place] [phone] Jose De Jesus Power III, MD [address] [place] [address] [address] [place] [address] 04/21/2025 11:00 AM DUMPER MOLD CLEANER Office Visit [facility] - Dermatology [address] [place] [address], [place] [address] Valentine Tabor MD [address] [place] [address] [address] [place] [address] Health Maintenance Due Date Last Done Comments COLOGUARD (AGES 45-75) - COLON CA SCREENING 1974 CT COLONOGRAPHY - COLON CA SCREENING 1974 FIT - COLON CA SCREENING 1974 FLEX SIG - COLON CA SCREENING 1974 PNEUMOCOCCAL VACCINE 50+ (1 of 1 - PCV) 02/23/2024 ZOSTER VACCINE (1 of 2) 02/23/2024 COVID-19 VACCINE (1 - 2023- season) 2024 INFLUENZA VACCINE (#1) 2024 MAMMOGRAM 01/07/2025 01/07/2023 (Done Outside Per Report) PAP SMEAR 10/30/2025 10/30/2022 (Done Outside Per Patient) SCREENING FOR DIABETES 02/25/2027 , 02/26/2024, 11/03/2022, Additional history exists LIPID TESTING 02/25/2029 02/26/2024, 0809/2022, 11/01/2021 COLON MONITORING 07/03/2032 07/03/2022, 07/03/2022 COLONOSCOPY - COLON CA SCREENING 07/03/2032 07/03/2022, 07/03/2022 Colorectal Cancer Screening 07/03/2032 DTAP/TDAP/TD VACCINES (3 - Td or Tdap) 01/24/2034 01/25/2024, 11/09/2013 HEPATITIS C SCREENING Completed 11/01/2021 HIV SCREENING Completed 11/01/2021 DEPRESSION SCREENING Completed 07/18/2024, 04/23/2023, 11/03/2022, Additional history exists HEPATITIS B VACCINE Discontinued HIB VACCINE Aged [...] Comments COMPREHENSIVE METABOLIC PANEL 02/26/2024 1:59 PM DUMPER MOLD CLEANER LIPID PROFILE 02/26/2024 1:59 PM DUMPER MOLD CLEANER ENDOSCOPY, COLON, SCREENING Routine 07/03/2022 11:04 AM CDT HEPATITIS C AB W/RFLX TO HCV RNA QN PCR Routine 11/01/2021 12:33 PM CDT Routine health maintenance HIV-1 HIV-2 ANTIBODY + HIV P24 AG PANEL Routine 11/01/2021 12:33 PM CDT Routine health maintenance from Last 3 Months or Most Recently Relevant to Health Maintenance Results * COMPREHENSIVE METABOLIC PANEL (02/26/2024 1:59 PM DUMPER MOLD CLEANER) Glucose 85 65 - 99 mg/dL [facility] [...] 29 U/L [facility] Comment: Test Performed at: [facility] [address] [place] [address] CESAR NICOLE MD 02/26/2024 1:59 PM DUMPER MOLD CLEANER 02/26/2024 2:01 PM DUMPER MOLD CLEANER Jose De Jesus Power III, MD LAB - CHEMISTRY ORDERABLE S Final Result [address] [address] * (ABNORMAL) LIPID PROFILE (02/26/2024 1:59 PM DUMPER MOLD CLEANER) Cholesterol 117 <200 mg/dL [facility] HDL Cholesterol [...] equation in the estimation of LDL-C. Jason SS et al. ZACK. 2013;310(19): 0759-6107 (http://education.Asana.Kiva/faq/EBW881) CHOL/HDLC RATIO 2.4 <5.0 (calc) [facility] Non HDL Cholesterol 68 <130 mg/dL (calc) [facility] Comment: For patients with diabetes plus 1 major ASCVD risk factor, treating to a non-HDL-C goal of <100 mg/dL (LDL-C of <70 mg/dL) is considered a therapeutic option. Test Performed at: [facility] [address] CESAR NICOLE MD 02/26/2024 1:59 PM DUMPER MOLD CLEANER 02/26/2024 2:01 PM DUMPER MOLD CLEANER Jose De Jesus Power III, MD LAB - CHEMISTRY ORDERABLE S Final Result [address] [address] * ENDOSCOPY, COLON, SCREENING (07/03/2022 11:04 AM [...] bowel preparation was evaluated using the BBPS ([place] Bowel Preparation Scale) with scores of: Right [...] Residual hemorrhoidal skin tags CPT copyright 2019 [employer]. All rights reserved. The codes documented in this report are preliminary and upon remote medical coder review may be revised to meet current compliance requirements. Caity Seymour MD 07/03/2022 11:50:01 AM Note Initiated On: 07/03/2022 11:04 AM Number of Addenda: 0 [facility] [address] [place] [address] [facility] 07/03/2022 11:0 4 AM CDT us Caity Seymour MD GI PROCEDURE ORDERABLES Ed ited Result - Final Performing Organization Address City/[facility]/ZIP Co de Phone Number [facility] * HEPATITIS C AB W/RFLX TO HCV RNA QN PCR (11/01/2021 12:33 PM CDT) Hepatitis C Antibody NON-REACTI VE NON-REACT EDU [facility] Signal to Cut-Off 0.03 <1.00 [facility] Comment: HCV antibody was non-reactive. There is no laboratory evidence of HCV infection. In most cases, no further action is required. However, if recent HCV exposure is suspected, a test for HCV RNA (test code 03844) is suggested. For additional information please refer to http://education.Jpwholesale/faq/UVW63m3 (This link is being provided for informational/ educational purposes only.) Test Performed at: [facility] [address] [place] [address] JEREMY LAST DO,MPH Blood BLOOD SPECIMEN / Unknown 11/01/2021 12:33 PM CDT 11/01/2021 12:36 PM CDT us Jose De Jesus Power III, MD LAB - CHEMISTRY ORDERABLE S Final Result Performing Organization Address [facility]/ZIP Co de Phone Number [facility] [address] [place] [address] * HIV-1 HIV-2 ANTIBODY + HIV P24 [...] purpose. For additional information please refer to http://education.Jpwholesale/faq/QCV360 (This link is being provided for informational/ educational purposes only.) The performance of this assay has not been clinically validated in patients less than 2 years old. Test Performed at: [facility] [address] [place] [address] JEREMY LAST DO,MPH Blood BLOOD SPECIMEN / Unknown 11/01/2021 12:33 PM CDT 11/01/2021 12:36 PM CDT Jose De Jesus Power III, MD LAB - CHEMISTRY ORDERABLE S Final Result Performing Organization Address City/State/[facility] Co de Phone Number [facility] [address] [place] [address] from Last 3 Months or Most Recently Relevant to Health Maintenance Insurance [facility] Care Teams Call Centre Supervisor Relationship Specialty Start Date End Date Jose De Jesus Power III, MD [address] [phone] PCP - General Internal Medicine 10/08/22
== END 2024-12-23 10:46 | disposition home or self-care (01) ==
LOC: ANHFOHIMG 10:47
PROVIDERS: Visit Provider Obstetrics & Gynecology
DX: Z12.31 Encounter for screening mammogram for malignant neoplasm of breast (principal)
CPT/HCPCS: 77063; 77067